=== PATIENT | female | born 1980 | race African-American/Black ===

== ENCOUNTER 2024-03-19 11:58 | Emergency (ER) | payer MEDICAID ==
[~2024-03-19] VITALS: Ht 170.2 cm; Wt 64.0 kg
[2024-03-19 11:59] VITALS: TEMP 98.4; O2SAT 100
[2024-03-19] MEDS: MAGNESIUM/ALUMINUM HYDROXIDE/SIMETHICONE 30ML UDC PO STA (13:22)
[2024-03-19] MEDS: ONDANSETRON 4MG ODT PO STA (13:22)
[2024-03-19] MEDS: DICYCLOMINE 10 MG/5 ML ORAL SYR PO STA (13:39)
[2024-03-19 14:57] VITALS: BP 111/68; PULSE 68; RESP 15
== END 2024-03-19 14:57 | disposition home or self-care (01) ==
LOC: ER 11:58
DX: K52.9 Noninfective gastroenteritis and colitis, unspecified (principal)
CPT/HCPCS: 99284; Q0162

== ENCOUNTER 2024-04-24 00:44 | Emergency (ER) | payer MEDICAID ==
[~2024-04-24] VITALS: Ht 165.1 cm; Wt 55.0 kg
[2024-04-24 00:46] VITALS: BP 134/90; PULSE 92; RESP 18; TEMP 98.2; O2SAT 98
== END 2024-04-24 01:49 | disposition left against medical advice (07) ==
LOC: ER 00:44
DX: R10.30 Lower abdominal pain, unspecified (principal); K59.00 Constipation, unspecified; Z53.21 Procedure and treatment not carried out due to patient leaving prior to being seen by health care provider

== ENCOUNTER 2024-05-01 18:13 | Emergency (ER) | payer MEDICAID ==
[~2024-05-01] VITALS: Ht 175.3 cm; Wt 65.3 kg
[2024-05-01 18:20] VITALS: BP 129/80; PULSE 92; RESP 16; TEMP 98.6; O2SAT 100
[2024-05-01] MEDS ORDERED: ACETAMINOPHEN 325MG TABLET PO STA (18:48)
[2024-05-01 19:47] LABS: BASOPHILS % 0.8 % (0.0-2.0); EOSINOPHILS % 0.1 % (0.0-5.0); HEMATOCRIT. 25.8 % (36.0-48.0); LYMPHOCYTES % 15.7 % (20.0-50.0); MEAN CORPUSCULAR HEMOGLOBIN 20.9 pg (28.0-32.0); MEAN CORPUSCULAR VOLUME 67.6 fL (81.0-99.0); MEAN PLATELET VOLUME 7.2 fl (7.4-10.4); MONOCYTES % 9.1 % (2.0-8.0); NEUTROPHILS % 74.3 % (40.0-76.0); PLATELET 526 x1000/uL (130-400); RED BLOOD CELL COUNT 3.82 mill/uL (4.2-5.4); RED CELL DISTRIBUTION WIDTH 23.2 % (11.6-14.6); WHITE BLOOD COUNT 7.6 x1000/uL (4.5-11.0)
[2024-05-01 19:48] LABS: DIFFERENTIAL COMMENT 1
[2024-05-01 19:49] LABS: ADD RBC MORPHOLOGY YES
[2024-05-01 19:53] LABS: CHLORIDE 99 mEq/L (98-107); POTASSIUM 4.2 mEq/L (3.5-5.1); SODIUM 133 mEq/L (136-145)
[2024-05-01 19:54] LABS: CALCIUM 8.9 mg/dL (8.7-10.4); CARBON DIOXIDE 27 mEq/L (21-32)
[2024-05-01 19:56] LABS: HCG SCREEN NEGATIVE
[2024-05-01 19:59] LABS: CREATININE 0.9 mg/dL (0.6-1.0); GLUCOSE 113 mg/dL (70-105); UREA NITROGEN BLOOD 11 mg/dL (9-23)
[2024-05-01 20:01] LABS: ALANINE AMINOTRANSFERASE < 7 IU/L (10-49); ALBUMIN 3.8 g/dL (3.2-4.8); ASPARTATE AMINOTRANSFERASE 26 IU/L (<34); BILIRUBIN DIRECT 0.1 mg/dL (<=3.0); BILIRUBIN TOTAL 0.4 mg/dL (0.1-1.0); PROTEIN TOTAL 8.3 g/dL (6.0-8.3)
[2024-05-01 20:07] LABS: INR 1.1; PROTHROMBIN TIME 12.6 sec (9.6-11.0)
[2024-05-01 20:12] LABS: ANISOCYTOSIS 3+; HYPOCHROMASIA 2+; MICROCYTOSIS 3+; PLATELET ESTIMATE INCREASED
== END 2024-05-01 21:00 | disposition left against medical advice (07) ==
LOC: ER 18:13
DX: R10.32 Left lower quadrant pain (principal); R11.2 Nausea with vomiting, unspecified; R50.9 Fever, unspecified
CPT/HCPCS: 36415; 74176; 80048; 80076; 84703; 85025; 99284

== ENCOUNTER 2024-07-06 17:04 | Inpatient (IN) | payer MEDICAID ==
[~2024-07-06] VITALS: Ht 162.6 cm; Wt 88.5 kg
[2024-07-06 18:51] LABS: CLARITY URINE CLEAR (CLEAR); COLOR URINE YELLOW (YELLOW); GLUCOSE URINE NEGATIVE (NEGATIVE); KETONES URINE NEGATIVE (NEGATIVE); LEUKOCYTE ESTERASE URINE TRACE (NEGATIVE); NITRITE URINE NEGATIVE (NEGATIVE); OCCULT BLOOD URINE NEGATIVE (NEGATIVE); PH URINE 5.5 (4.5-8.0); PROTEIN URINE 1+ (NEGATIVE); SPECIFIC GRAVITY URINE 1.011 (1.005-1.030); UROBILINOGEN URINE 0.2 E.U./dL (0.2-1.0)
[2024-07-06 19:02] LABS: BACTERIA URINE TRACE; RBC URINE 0-2 /hpf (0-2); SQUAMOUS EPITHELIAL CELL URINE 1+ /lpf (RARE/1+); TRICHOMONAS URINE 2+
[2024-07-06 19:07] LABS: *AMPHETAMINES SCREEN URINE PRESUMPTIVE POSITIVE (NEGATIVE); *BARBITURATES SCREEN URINE NEGATIVE (NEGATIVE); *BENZODIAZEPINES SCREEN URINE NEGATIVE (NEGATIVE); *COCAINE SCREEN URINE NEGATIVE (NEGATIVE); CANNABINOID URINE SCREEN NEGATIVE (NEGATIVE); ECSTASY MDMA SCREEN URINE NEGATIVE (NEGATIVE); METHADONE URINE SCREEN NEGATIVE (NEGATIVE); OPIATES URINE SCREEN PRESUMPTIVE POSITIVE (NEGATIVE); PHENCYCLIDINE URINE SCREEN PRESUMTIVE POSITIVE (NEGATIVE)
[2024-07-06 19:18] LABS: ADD RBC MORPHOLOGY YES; BASOPHILS % 0.5 % (0.0-2.0); DIFFERENTIAL COMMENT 1; EOSINOPHILS % 0.3 % (0.0-5.0); HEMATOCRIT. 29.8 % (36.0-48.0); HEMOGLOBIN. 9.6 g/dL (12.0-16.0); LYMPHOCYTES % 9.3 % (20.0-50.0); MEAN CORPUSCULAR HEMOGLOBIN 23.9 pg (28.0-32.0); MEAN CORPUSCULAR HGB CONC 32.2 g/dL (31.0-37.0); MEAN CORPUSCULAR VOLUME 74.3 fL (81.0-99.0); MEAN PLATELET VOLUME 6.9 fl (7.4-10.4); MONOCYTES % 5.9 % (2.0-8.0); PLATELET 550 x1000/uL (130-400); RED BLOOD CELL COUNT 4.01 mill/uL (4.2-5.4); RED CELL DISTRIBUTION WIDTH 25.6 % (11.6-14.6); WHITE BLOOD COUNT 9.1 x1000/uL (4.5-11.0)
[2024-07-06 19:24] LABS: CARBON DIOXIDE 21 mEq/L (21-32); CHLORIDE 110 mEq/L (98-107); POTASSIUM 5.7 mEq/L (3.5-5.1); SODIUM 140 mEq/L (136-145)
[2024-07-06 19:25] LABS: CALCIUM 9.1 mg/dL (8.7-10.4)
[2024-07-06 19:26] LABS: HCG SCREEN NEGATIVE
[2024-07-06 19:29] LABS: INR 1.2
[2024-07-06 19:30] LABS: GLUCOSE 79 mg/dL (70-105); UREA NITROGEN BLOOD 40 mg/dL (9-23)
[2024-07-06 19:31] LABS: CREATININE 3.4 mg/dL (0.6-1.0); ETHANOL BLOOD < 10 mg/dL (<10); TROPONIN I HIGH SENSITIVITY 4 ng/L (3.0-34)
[2024-07-06 19:32] LABS: ALANINE AMINOTRANSFERASE < 7 IU/L (10-49); ALBUMIN 3.4 g/dL (3.2-4.8); ASPARTATE AMINOTRANSFERASE 15 IU/L (<34); BILIRUBIN TOTAL 0.3 mg/dL (0.1-1.0); PROTEIN TOTAL 8.1 g/dL (6.0-8.3)
[2024-07-06 19:37] LABS: HYPOCHROMASIA 1+; MICROCYTOSIS 2+; PLATELET ESTIMATE SLIGHTLY INCREASED
[2024-07-06 19:38] LABS: BILIRUBIN DIRECT < 0.1 mg/dL (<=3.0)
[2024-07-06] MEDS ORDERED: DEXTROSE 50% WATER 50ML SYRINGE IV ONE (19:45)
[2024-07-06] MEDS ORDERED: SODIUM BICARBONATE 8.4% 50MEQ/50ML SYR IV ONE (19:45)
[2024-07-06] MEDS ORDERED: CALCIUM GLUCONATE 1,000 MG in DEXT 5% WATER 100 ML IV ONE (19:45)
[2024-07-06] MEDS ORDERED: INSULIN REGULAR (HUMULIN R) 1000UNITS/10ML VIAL IV ONE (19:45)
[2024-07-06] MEDS ORDERED: ALBUTEROL (0.083%) 2.5MG/3ML NEB HHN SCH (20:00)
[2024-07-06] MEDS: CEFTRIAXONE 1GM/50ML 50 ML IV ONE (21:30)
[2024-07-06] MEDS: CALCIUM GLUCONATE 1GM PREMIX 50 ML IV NR (21:58)
[2024-07-06] MEDS: MORPHINE SULFATE 4 MG/ML INJ (FOR IV/IM USE) IV ONE (22:19)
[2024-07-06] MEDS: ONDANSETRON HCL 4MG/2ML INJ IV ONE (22:19)
[2024-07-06] MEDS: DEXTROSE 50% WATER 50ML SYRINGE IV NR (22:24)
[2024-07-06] MEDS: INSULIN REGULAR (HUMULIN R) 1000UNITS/10ML VIAL IV NR (22:24)
[2024-07-06] MEDS: SODIUM BICARBONATE 8.4% 50MEQ/50ML SYR IV NR (22:24)
[2024-07-07 02:08] VITALS: BP 146/92; PULSE 103; RESP 20; TEMP 36.6404
[2024-07-07 04:00] VITALS: BP 138/78; PULSE 78; RESP 18; TEMP 37.00296; O2SAT 98
[2024-07-07] MEDS ORDERED: NALOXONE HCL 0.4MG/ML VIAL IV PRN (06:00)
[2024-07-07] MEDS: MORPHINE SULFATE 2 MG/ML INJ (NOT FOR IM USE) IV PRN (06:16)
[2024-07-07 07:16] LABS: HEPATITIS B SURFACE ANTIGEN NEGATIVE (Negative)
[2024-07-07 07:36] LABS: HEPATITIS C AB NON REACTIVE (Neg) (Negative)
[2024-07-07 08:00] VITALS: BP 125/87; PULSE 87; RESP 18; TEMP 36.50292; O2SAT 100
[2024-07-07] MEDS: SODIUM CHLORIDE 0.9% 100 ML IV ONE (09:00)
[2024-07-07 09:57] LABS: POTASSIUM 5.8 mEq/L (3.5-5.1)
[2024-07-07 09:58] LABS: CALCIUM 8.7 mg/dL (8.7-10.4)
[2024-07-07 10:13] LABS: BASOPHILS % 0.8 % (0.0-2.0); EOSINOPHILS % 0.3 % (0.0-5.0); HEMOGLOBIN. 9.2 g/dL (12.0-16.0); LYMPHOCYTES % 7.3 % (20.0-50.0); MEAN CORPUSCULAR HEMOGLOBIN 23.1 pg (28.0-32.0); MEAN CORPUSCULAR HGB CONC 30.8 g/dL (31.0-37.0); MEAN CORPUSCULAR VOLUME 74.9 fL (81.0-99.0); MEAN PLATELET VOLUME 7.1 fl (7.4-10.4); MONOCYTES % 7.1 % (2.0-8.0); NEUTROPHILS % 84.5 % (40.0-76.0); PLATELET 510 x1000/uL (130-400); RED CELL DISTRIBUTION WIDTH 25.4 % (11.6-14.6); WHITE BLOOD COUNT 8.7 x1000/uL (4.5-11.0)
[2024-07-07 10:17] LABS: DIFFERENTIAL COMMENT 1
[2024-07-07 12:00] VITALS: BP 126/90; PULSE 95; RESP 18; TEMP 36.50292; O2SAT 98
[2024-07-07] MEDS: DEXTROSE 50% WATER 50ML SYRINGE IV NR (13:18)
[2024-07-07] MEDS: SODIUM BICARBONATE 8.4% 50MEQ/50ML SYR IV NR (13:18)
[2024-07-07] MEDS: INSULIN REGULAR (HUMULIN R) 1000UNITS/10ML VIAL IV NR (13:20)
[2024-07-07] MEDS: SODIUM ZIRCONIUM CYCLOSILICATE 10GM/PACKET PO NR (13:20)
[2024-07-07 16:00] VITALS: BP 120/84; PULSE 96; RESP 18; TEMP 36.55848; O2SAT 100
[2024-07-07] MEDS ORDERED: ACETAMINOPHEN 325MG TABLET PO PRN (17:45)
[2024-07-07] MEDS ORDERED: DOCUSATE SODIUM 100MG CAPSULE PO PRN (17:45)
[2024-07-07 20:00] VITALS: BP 114/72; PULSE 107; RESP 18; TEMP 36.44736; O2SAT 98
[2024-07-07] MEDS ORDERED: BICT1TAB3 PO (22:38)
[2024-07-08] VITALS: BP 122/74; PULSE 97; RESP 19; TEMP 36.28068; O2SAT 98
[2024-07-08 04:00] VITALS: BP 138/87; PULSE 97; RESP 18; TEMP 36.33624; O2SAT 99
[2024-07-08 08:00] VITALS: BP 149/100; PULSE 91; RESP 18; TEMP 36.6696; O2SAT 93
[2024-07-08 12:00] VITALS: BP 136/93; PULSE 100; RESP 20; TEMP 37.00296; O2SAT 99
[2024-07-08 16:00] VITALS: BP 144/82; PULSE 90; RESP 18; TEMP 36.78072; O2SAT 97
[2024-07-08 18:57] LABS: BASOPHILS % 0.2 % (0.0-2.0); EOSINOPHILS % 0.3 % (0.0-5.0); HEMATOCRIT. 27.7 % (36.0-48.0); HEMOGLOBIN. 8.7 g/dL (12.0-16.0); LYMPHOCYTES % 10.4 % (20.0-50.0); MEAN CORPUSCULAR HEMOGLOBIN 23.6 pg (28.0-32.0); MEAN CORPUSCULAR HGB CONC 31.5 g/dL (31.0-37.0); MEAN CORPUSCULAR VOLUME 74.9 fL (81.0-99.0); MEAN PLATELET VOLUME 7.2 fl (7.4-10.4); MONOCYTES % 6.2 % (2.0-8.0); NEUTROPHILS % 82.9 % (40.0-76.0); PLATELET 492 x1000/uL (130-400); RED BLOOD CELL COUNT 3.69 mill/uL (4.2-5.4); RED CELL DISTRIBUTION WIDTH 25.1 % (11.6-14.6); WHITE BLOOD COUNT 8.6 x1000/uL (4.5-11.0)
[2024-07-08 18:58] LABS: DIFFERENTIAL COMMENT 1
[2024-07-08 19:02] LABS: CHLORIDE 107 mEq/L (98-107); POTASSIUM 5.9 mEq/L (3.5-5.1); SODIUM 137 mEq/L (136-145)
[2024-07-08 19:03] LABS: CARBON DIOXIDE 20 mEq/L (21-32)
[2024-07-08 19:04] LABS: CALCIUM 8.8 mg/dL (8.7-10.4)
[2024-07-08 19:08] LABS: CREATININE 3.4 mg/dL (0.6-1.0); GLUCOSE 82 mg/dL (70-105); IRON 17 ug/dL (50-170)
[2024-07-08 19:09] LABS: UREA NITROGEN BLOOD 42 mg/dL (9-23)
[2024-07-08 19:11] LABS: TOTAL IRON BINDING CAPACITY 185 ug/dl (250-425)
[2024-07-08 20:00] VITALS: BP 148/99; PULSE 99; RESP 18; TEMP 36.50292; O2SAT 99
[2024-07-09] VITALS: BP 139/88; PULSE 96; RESP 18; TEMP 36.61404; O2SAT 96
[2024-07-09 04:00] VITALS: BP 131/88; PULSE 94; RESP 18; TEMP 36.3918; O2SAT 99
[2024-07-09 08:00] VITALS: BP 134/71; PULSE 101; RESP 18; TEMP 37.00296; O2SAT 98
[2024-07-09 08:13] LABS: CARCINOEMBRYONIC AG - SEND OUT < 0.6 ng/mL (0.0-4.7)
[2024-07-09] MEDS ORDERED: BICTEGRAVIR 50MG/EMTRICITABINE 200MG/TENOFOVIR ALA 25MG PO SCH ×2 (09:00→09:28)
[2024-07-09 09:07] LABS: % CD 3 POS. LYMPHOCYTES 86.7 % (57.5-86.2); % CD 4 POS. LYMPHOCYTES 41.3 % (30.8-58.5); % CD 8 POS. LYMPH 44.7 % (12.0-35.5); ABSOLUTE CD 3 607 /uL (622-2402); ABSOLUTE CD 4 HELPER 289 /uL (359-1519); ABSOLUTE CD 8 SUPPRESSOR 313 /uL (109-897); ABSOLUTE LYMPHOCYTES 0.7 x10E3/uL (0.7-3.1); ABSOLUTE MONOCYTES 0.4 x10E3/uL (0.1-0.9); ABSOLUTE NEUTROPHILS 7.6 x10E3/uL (1.4-7.0); BASOPHILS 0 % (Not Estab.); CD4/CD8 RATIO 0.92 (0.92-3.72); EOSINOPHILS 0 % (Not Estab.); HEMATOCRIT 31.5 % (34.0-46.6); HEMOGLOBIN 9.2 g/dL (11.1-15.9); IMMATURE GRANULOCYTES 1 % (Not Estab.); IMMATURE GRANULOCYTES ABSOLUTE 0.1 x10E3/uL (0.0-0.1); LYMPHOCYTES 8 % (Not Estab.); MEAN CORPUSCULAR HEMOGLOBIN 22.9 pg (26.6-33.0); MEAN CORPUSCULAR HGB CONC. 29.2 g/dL (31.5-35.7); MEAN CORPUSCULAR VOLUME 78 fL (79-97); MONOCYTES 5 % (Not Estab.); NEUTROPHILS 86 % (Not Estab.); PLATELETS 537 x10E3/uL (150-450); RBC 4.02 x10E6/uL (3.77-5.28); RED CELL DISTRIBUTION WIDTH 21.3 % (11.7-15.4); WBC 8.8 x10E3/uL (3.4-10.8)
[2024-07-09 10:34] LABS: BASOPHILS % 0.4 % (0.0-2.0); EOSINOPHILS % 0.1 % (0.0-5.0); HEMATOCRIT. 28.1 % (36.0-48.0); HEMOGLOBIN. 8.9 g/dL (12.0-16.0); MEAN CORPUSCULAR HEMOGLOBIN 23.7 pg (28.0-32.0); MEAN CORPUSCULAR HGB CONC 31.9 g/dL (31.0-37.0); MEAN CORPUSCULAR VOLUME 74.4 fL (81.0-99.0); MONOCYTES % 6.9 % (2.0-8.0); NEUTROPHILS % 82.6 % (40.0-76.0); PLATELET 452 x1000/uL (130-400); RED BLOOD CELL COUNT 3.77 mill/uL (4.2-5.4); RED CELL DISTRIBUTION WIDTH 25.3 % (11.6-14.6); WHITE BLOOD COUNT 8.7 x1000/uL (4.5-11.0)
[2024-07-09 10:43] LABS: DIFFERENTIAL COMMENT 1
[2024-07-09 10:47] LABS: CALCIUM 8.7 mg/dL (8.7-10.4); POTASSIUM 5.9 mEq/L (3.5-5.1)
[2024-07-09 10:52] LABS: CREATININE 3.4 mg/dL (0.6-1.0)
[2024-07-09] MEDS ORDERED: ALBUTEROL (0.5%) 2.5MG/0.5ML NEB HHN NR (11:00)
[2024-07-09] MEDS: SODIUM ZIRCONIUM CYCLOSILICATE 10GM/PACKET PO NR (11:47)
[2024-07-09] MEDS: BICTEGRAVIR 50MG/EMTRICITABINE 200MG/TENOFOVIR ALA 25MG PO SCH (11:47)
[2024-07-09 12:00] VITALS: BP 150/98; PULSE 87; RESP 18; TEMP 36.50292; O2SAT 98
[2024-07-09 16:39] VITALS: BP 137/90; PULSE 90; RESP 18; TEMP 36.33624; O2SAT 98
[2024-07-09 22:29] VITALS: BP 136/92; PULSE 100; RESP 18; TEMP 36.55848; O2SAT 97
[2024-07-10] VITALS (7 sets, daily range): BP systolic 126–150; BP diastolic 86–102; PULSE 79–105; RESP 16–20; TEMP 36.44736–36.89184; O2SAT 97–100
[2024-07-10] MEDS: SODIUM BICARBONATE 8.4% 50MEQ/50ML SYR IV NR ×2 (04:52→15:52)
[2024-07-10] MEDS: INSULIN REGULAR (HUMULIN R) 1000UNITS/10ML VIAL IV NR ×2 (04:52→15:53)
[2024-07-10] MEDS: DEXTROSE 50% WATER 50ML SYRINGE IV NR ×2 (04:52→15:52)
[2024-07-10] MEDS: SODIUM ZIRCONIUM CYCLOSILICATE 10GM/PACKET PO NR ×2 (05:00→15:53)
[2024-07-10] MEDS: ALBUTEROL (0.5%) 2.5MG/0.5ML NEB HHN NR (16:39)
[2024-07-10] MEDS: ONDANSETRON HCL 4MG/2ML INJ IV PRN (21:23)
[2024-07-11] VITALS: BP 140/100; PULSE 98; RESP 18; TEMP 37.11408; O2SAT 99
[2024-07-11 04:00] VITALS: BP 130/89; PULSE 96; RESP 18; TEMP 36.72516; O2SAT 95
[2024-07-11 04:11] LABS: *HIV-1 RNA BY PCR 2830 copies/mL (.); *HIV1 RNA LOG10 3.452 (.)
[2024-07-11 08:00] VITALS: BP 139/89; PULSE 88; RESP 20; TEMP 36.61404; O2SAT 99
[2024-07-11 12:15] VITALS: BP 130/93; PULSE 87; RESP 22; TEMP 36.55848; O2SAT 100
[2024-07-11 16:50] VITALS: BP 148/102; PULSE 91; RESP 22; TEMP 36.50292; O2SAT 96
[2024-07-11 20:00] VITALS: BP 137/93; PULSE 91; RESP 16; TEMP 36.89184; O2SAT 98
[2024-07-11] MEDS: OLANZAPINE 5MG TABLET PO SCH (21:30)
[2024-07-12] VITALS: BP 122/80; PULSE 91; RESP 19; TEMP 36.78072; O2SAT 98
[2024-07-12 04:00] VITALS: BP 133/93; PULSE 89; RESP 19; TEMP 36.72516; O2SAT 98
[2024-07-12 08:00] VITALS: BP 134/81; PULSE 91; RESP 18; TEMP 36.50292; O2SAT 97
[2024-07-12 12:00] VITALS: BP 134/92; PULSE 93; RESP 18; TEMP 36.72516; O2SAT 99
[2024-07-12 16:00] VITALS: BP 129/69; PULSE 89; RESP 19; TEMP 36.55848; O2SAT 98
[2024-07-12 20:00] VITALS: BP 152/94; PULSE 95; RESP 18; TEMP 37.11408; O2SAT 99
[2024-07-12] MEDS: ACETAMINOPHEN 325MG TABLET PO PRN (21:11)
[2024-07-13] VITALS: BP 142/80; PULSE 97; RESP 18; TEMP 36.55848; O2SAT 99
[2024-07-13 04:00] VITALS: BP 140/90; PULSE 89; RESP 18; TEMP 36.55848; O2SAT 99
[2024-07-13 08:00] VITALS: BP 141/99; PULSE 94; RESP 18; TEMP 36.78072; O2SAT 97
[2024-07-13 12:00] VITALS: BP 142/96; PULSE 89; RESP 18; TEMP 36.6696; O2SAT 96
[2024-07-13 16:00] VITALS: BP 139/98; PULSE 93; RESP 18; TEMP 36.61404; O2SAT 98
[2024-07-13] MEDS: CLONIDINE 0.1MG TABLET PO PRN (17:01)
[2024-07-13 22:44] LABS: BASOPHILS % 0.5 % (0.0-2.0); EOSINOPHILS % 0.2 % (0.0-5.0); HEMATOCRIT. 26.5 % (36.0-48.0); HEMOGLOBIN. 8.3 g/dL (12.0-16.0); LYMPHOCYTES % 10.7 % (20.0-50.0); MEAN CORPUSCULAR HEMOGLOBIN 23.4 pg (28.0-32.0); MEAN CORPUSCULAR HGB CONC 31.5 g/dL (31.0-37.0); MEAN CORPUSCULAR VOLUME 74.2 fL (81.0-99.0); MEAN PLATELET VOLUME 7.1 fl (7.4-10.4); MONOCYTES % 6.5 % (2.0-8.0); NEUTROPHILS % 82.1 % (40.0-76.0); PLATELET 429 x1000/uL (130-400); RED BLOOD CELL COUNT 3.57 mill/uL (4.2-5.4); RED CELL DISTRIBUTION WIDTH 24.9 % (11.6-14.6); WHITE BLOOD COUNT 7.3 x1000/uL (4.5-11.0)
[2024-07-13 22:45] LABS: DIFFERENTIAL COMMENT 1
[2024-07-13 22:52] LABS: CALCIUM 9.2 mg/dL (8.7-10.4)
[2024-07-13 22:57] LABS: CREATININE 4.4 mg/dL (0.6-1.0)
[2024-07-13 23:04] LABS: POTASSIUM 6.6 mEq/L (3.5-5.1)
[2024-07-14] VITALS: BP 120/82; PULSE 90; RESP 18; TEMP 36.61404; O2SAT 99
[2024-07-14] MEDS: SODIUM POLYSTYRENE SULFONATE 15 G/60 ML BOT PO NR (02:00)
[2024-07-14] MEDS: CALCIUM CHLORIDE 1GM/10ML SYR IV NR ×2 (02:00→07:38)
[2024-07-14] MEDS: INSULIN REGULAR (HUMULIN R) 1000UNITS/10ML VIAL IV NR ×2 (02:00→07:44)
[2024-07-14] MEDS: DEXTROSE 50% WATER 50ML SYRINGE IV NR ×2 (02:00→07:37)
[2024-07-14] MEDS: SODIUM ZIRCONIUM CYCLOSILICATE 10GM/PACKET PO NR (07:30)
[2024-07-14 07:47] LABS: CALCIUM 9.8 mg/dL (8.7-10.4)
[2024-07-14 07:51] LABS: CREATININE 4.3 mg/dL (0.6-1.0)
[2024-07-14 08:01] LABS: POTASSIUM 6.7 mEq/L (3.5-5.1)
[2024-07-14 08:15] LABS: EOSINOPHILS % 0.3 % (0.0-5.0); HEMATOCRIT. 28.7 % (36.0-48.0); HEMOGLOBIN. 9.1 g/dL (12.0-16.0); LYMPHOCYTES % 14.2 % (20.0-50.0); MEAN CORPUSCULAR HEMOGLOBIN 23.7 pg (28.0-32.0); MEAN CORPUSCULAR HGB CONC 31.5 g/dL (31.0-37.0); MEAN CORPUSCULAR VOLUME 75.1 fL (81.0-99.0); MEAN PLATELET VOLUME 7.4 fl (7.4-10.4); MONOCYTES % 7.9 % (2.0-8.0); NEUTROPHILS % 76.6 % (40.0-76.0); PLATELET 442 x1000/uL (130-400); RED BLOOD CELL COUNT 3.83 mill/uL (4.2-5.4); RED CELL DISTRIBUTION WIDTH 24.5 % (11.6-14.6); WHITE BLOOD COUNT 7.1 x1000/uL (4.5-11.0)
[2024-07-14 08:22] LABS: DIFFERENTIAL COMMENT 1
[2024-07-15] VITALS (7 sets, daily range): BP systolic 128–131; BP diastolic 75–90; PULSE 74–111; RESP 18–20; TEMP 36.50292–37; O2SAT 96–99
[2024-07-15] MEDS: IPRATROPIUM/ALBUTEROL 0.5-3(2.5)MG/3ML NEB HHN PRN (14:53)
[2024-07-16] VITALS: BP 124/86; PULSE 114; RESP 18; TEMP 36.16956; O2SAT 90
[2024-07-16 04:00] VITALS: BP 124/85; PULSE 100; RESP 19; TEMP 36.28068; O2SAT 96
[2024-07-16 08:00] VITALS: BP 133/93; PULSE 103; RESP 20; TEMP 36.44736; O2SAT 98
[2024-07-16 12:00] VITALS: BP 118/81; PULSE 102; RESP 18; TEMP 36.3918; O2SAT 98
[2024-07-16] MEDS: SODIUM BICARBONATE 8.4% 50MEQ/50ML SYR IV NR (13:45)
[2024-07-16] MEDS: DEXTROSE 50% WATER 50ML SYRINGE IV NR (13:45)
[2024-07-16] MEDS ORDERED: CALCIUM CHLORIDE 1GM/10ML SYR IV ONE (13:45)
[2024-07-16] MEDS: SODIUM POLYSTYRENE SULFONATE 15 G/60 ML BOT PO NR (14:00)
[2024-07-16] MEDS: INSULIN REGULAR (HUMULIN R) 1000UNITS/10ML VIAL IV NR (14:00)
[2024-07-16] MEDS: FUROSEMIDE 100MG/10ML VIAL IV NR (14:00)
[2024-07-16] MEDS: CALCIUM GLUCONATE 1GM PREMIX 50ML IV NR (15:30)
[2024-07-16 16:00] VITALS: BP 134/71; PULSE 99; RESP 20; TEMP 36.44736; O2SAT 97
[2024-07-16 20:00] VITALS: BP 130/80; PULSE 101; RESP 18; TEMP 36.28068; O2SAT 93
[2024-07-16] MEDS: OLANZAPINE 5MG TABLET PO SCH (21:06)
[2024-07-16 21:59] LABS: BASOPHILS % 0.1 % (0.0-2.0); EOSINOPHILS % 0.2 % (0.0-5.0); HEMATOCRIT. 32.8 % (36.0-48.0); HEMOGLOBIN. 10.2 g/dL (12.0-16.0); MEAN CORPUSCULAR HEMOGLOBIN 23.5 pg (28.0-32.0); MEAN CORPUSCULAR VOLUME 75.8 fL (81.0-99.0); MEAN PLATELET VOLUME 7.4 fl (7.4-10.4); MONOCYTES % 6.4 % (2.0-8.0); NEUTROPHILS % 83.3 % (40.0-76.0); PLATELET 411 x1000/uL (130-400); RED BLOOD CELL COUNT 4.33 mill/uL (4.2-5.4); RED CELL DISTRIBUTION WIDTH 25.3 % (11.6-14.6); WHITE BLOOD COUNT 8.9 x1000/uL (4.5-11.0)
[2024-07-16 22:00] LABS: DIFFERENTIAL COMMENT 1
[2024-07-16 22:02] LABS: CHLORIDE 105 mEq/L (98-107); SODIUM 136 mEq/L (136-145)
[2024-07-16 22:03] LABS: CALCIUM 9.4 mg/dL (8.7-10.4); CARBON DIOXIDE 19 mEq/L (21-32)
[2024-07-16 22:08] LABS: CREATININE 4.4 mg/dL (0.6-1.0); GLUCOSE 76 mg/dL (70-105); UREA NITROGEN BLOOD 52 mg/dL (9-23)
[2024-07-16 22:10] LABS: PHOSPHORUS 5.8 mg/dL (2.5-4.9)
[2024-07-16 22:31] LABS: POTASSIUM 7.3 mEq/L (3.5-5.1)
[2024-07-17] VITALS: BP 145/95; PULSE 99; RESP 18; TEMP 36.22512; O2SAT 95
[2024-07-17 08:00] VITALS: BP 131/89; PULSE 100; RESP 18; TEMP 36.3918; O2SAT 100
[2024-07-17 09:08] VITALS: PULSE 86; RESP 18
[2024-07-17] MEDS: DEXTROSE 50% WATER 50ML SYRINGE IV NR ×2 (14:54→23:50)
[2024-07-17] MEDS: SODIUM ZIRCONIUM CYCLOSILICATE 10GM/PACKET PO NR (14:54)
[2024-07-17] MEDS: SODIUM BICARBONATE 8.4% 50MEQ/50ML SYR IV NR ×2 (14:54→23:46)
[2024-07-17] MEDS: INSULIN REGULAR (HUMULIN R) 1000UNITS/10ML VIAL IV NR ×2 (15:23→22:30)
[2024-07-17 20:00] VITALS: BP 129/95; PULSE 109; RESP 19; TEMP 36.33624; O2SAT 97
[2024-07-17] MEDS ORDERED: ALBUTEROL (0.5%) 2.5MG/0.5ML NEB HHN NR (22:30)
[2024-07-17] MEDS: CALCIUM GLUCONATE 1GM PREMIX 50 ML IV NR (23:49)
[2024-07-18] VITALS (12 sets, daily range): BP systolic 110–135; BP diastolic 74–90; PULSE 68–108; RESP 17–19; TEMP 35.94732–37.05852; O2SAT 95–100
[2024-07-18 07:59] LABS: CREATININE 4.7 mg/dL (0.6-1.0)
[2024-07-18] MEDS ORDERED: DEXTROSE 50% WATER 50ML SYRINGE IV NR (09:30)
[2024-07-18] MEDS ORDERED: SODIUM BICARBONATE 8.4% 50MEQ/50ML SYR IV NR (09:30)
[2024-07-18] MEDS ORDERED: CALCIUM GLUCONATE 1GM PREMIX 50 ML IV NR (10:00)
[2024-07-18] MEDS ORDERED: INSULIN REGULAR (HUMULIN R) 1000UNITS/10ML VIAL SUBCUT NR (10:00)
[2024-07-18 12:15] LABS: HEPATITIS B SURFACE ANTIGEN NEGATIVE (Negative)
[2024-07-18 12:35] LABS: HEPATITIS A AB IGM NEGATIVE (Negative)
[2024-07-18 12:36] LABS: HEPATITIS B CORE AB IGM NEGATIVE (Negative); HEPATITIS C AB NON REACTIVE (Neg) (Negative)
[2024-07-18] MEDS: LIDOCAINE HCL 1% 10 MG/ML 10ML VIAL ONE (13:12)
[2024-07-19] VITALS (10 sets, daily range): BP systolic 105–132; BP diastolic 70–87; PULSE 66–104; RESP 18–19; TEMP 36.3918–36.6696; O2SAT 98–100
[2024-07-19 07:11] LABS: POTASSIUM 4.4 mEq/L (3.5-5.1)
[2024-07-19 07:12] LABS: CALCIUM 8.8 mg/dL (8.7-10.4)
[2024-07-19 07:22] LABS: BASOPHILS % 0.1 % (0.0-2.0); EOSINOPHILS % 0.1 % (0.0-5.0); HEMATOCRIT. 25.6 % (36.0-48.0); LYMPHOCYTES % 10.6 % (20.0-50.0); MEAN CORPUSCULAR HEMOGLOBIN 23.5 pg (28.0-32.0); MEAN CORPUSCULAR HGB CONC 31.1 g/dL (31.0-37.0); MEAN CORPUSCULAR VOLUME 75.5 fL (81.0-99.0); MEAN PLATELET VOLUME 7.4 fl (7.4-10.4); MONOCYTES % 6.9 % (2.0-8.0); NEUTROPHILS % 82.3 % (40.0-76.0); PLATELET 367 x1000/uL (130-400); RED BLOOD CELL COUNT 3.39 mill/uL (4.2-5.4); WHITE BLOOD COUNT 9.1 x1000/uL (4.5-11.0)
[2024-07-19 07:50] LABS: DIFFERENTIAL COMMENT 1
[2024-07-19 07:52] LABS: ADD RBC MORPHOLOGY NO
[2024-07-19 08:00] LABS: CREATININE 2.8 mg/dL (0.6-1.0)
[2024-07-20 04:00] VITALS: BP 115/76; PULSE 85; RESP 18; TEMP 36.44736; O2SAT 97
[2024-07-20 06:45] LABS: POTASSIUM 5.3 mEq/L (3.5-5.1)
[2024-07-20 06:46] LABS: CALCIUM 8.6 mg/dL (8.7-10.4)
[2024-07-20 06:51] LABS: CREATININE 3.3 mg/dL (0.6-1.0)
[2024-07-20 07:16] LABS: BASOPHILS % 0.1 % (0.0-2.0); EOSINOPHILS % 0.5 % (0.0-5.0); HEMATOCRIT. 24.2 % (36.0-48.0); HEMOGLOBIN. 7.8 g/dL (12.0-16.0); LYMPHOCYTES % 11.6 % (20.0-50.0); MEAN CORPUSCULAR HEMOGLOBIN 23.9 pg (28.0-32.0); MEAN CORPUSCULAR HGB CONC 32.3 g/dL (31.0-37.0); MEAN CORPUSCULAR VOLUME 73.9 fL (81.0-99.0); MEAN PLATELET VOLUME 7.6 fl (7.4-10.4); NEUTROPHILS % 79.8 % (40.0-76.0); PLATELET 336 x1000/uL (130-400); RED BLOOD CELL COUNT 3.27 mill/uL (4.2-5.4); WHITE BLOOD COUNT 8.4 x1000/uL (4.5-11.0)
[2024-07-20 08:00] VITALS: BP 115/54; PULSE 107; RESP 18; TEMP 36.61404; O2SAT 97
[2024-07-20 08:28] LABS: DIFFERENTIAL COMMENT 1
[2024-07-20 08:29] LABS: ADD RBC MORPHOLOGY NO
[2024-07-21] VITALS (8 sets, daily range): BP systolic 101–161; BP diastolic 68–92; PULSE 68–98; RESP 18–21; TEMP 35.89176–36.6696; O2SAT 95–100
[2024-07-22] VITALS: BP 158/85; PULSE 82; RESP 20; TEMP 36.33624; O2SAT 99
[2024-07-22 04:00] VITALS: BP 167/94; PULSE 80; RESP 18; TEMP 36.61404; O2SAT 18
[2024-07-22 08:00] VITALS: BP 141/98; PULSE 87; RESP 18; TEMP 36.114; O2SAT 96
[2024-07-22 20:00] VITALS: BP 134/80; PULSE 86; RESP 19; TEMP 36.89184; O2SAT 100
[2024-07-23] VITALS (7 sets, daily range): BP systolic 135–156; BP diastolic 66–102; PULSE 83–89; RESP 18–19; TEMP 36.3918–36.72516; O2SAT 96–100
[2024-07-23 11:01] LABS: POTASSIUM 5.6 mEq/L (3.5-5.1)
[2024-07-23 11:02] LABS: CALCIUM 8.5 mg/dL (8.7-10.4)
[2024-07-23 11:07] LABS: CREATININE 3.9 mg/dL (0.6-1.0)
[2024-07-23 11:28] LABS: BASOPHILS % 0.2 % (0.0-2.0); EOSINOPHILS % 0.2 % (0.0-5.0); HEMATOCRIT. 25.3 % (36.0-48.0); HEMOGLOBIN. 7.9 g/dL (12.0-16.0); LYMPHOCYTES % 10.1 % (20.0-50.0); MEAN CORPUSCULAR HEMOGLOBIN 23.8 pg (28.0-32.0); MEAN CORPUSCULAR HGB CONC 31.4 g/dL (31.0-37.0); MEAN CORPUSCULAR VOLUME 75.8 fL (81.0-99.0); MEAN PLATELET VOLUME 7.3 fl (7.4-10.4); MONOCYTES % 6.4 % (2.0-8.0); NEUTROPHILS % 83.1 % (40.0-76.0); PLATELET 315 x1000/uL (130-400); RED BLOOD CELL COUNT 3.34 mill/uL (4.2-5.4); RED CELL DISTRIBUTION WIDTH 25.2 % (11.6-14.6); WHITE BLOOD COUNT 7.7 x1000/uL (4.5-11.0)
[2024-07-23 11:30] LABS: DIFFERENTIAL COMMENT 1
[2024-07-24] VITALS (7 sets, daily range): BP systolic 103–147; BP diastolic 66–102; PULSE 66–99; RESP 17–22; TEMP 36.3918–37.00296; O2SAT 99–100
[2024-07-24 11:24] LABS: POTASSIUM 4.8 mEq/L (3.5-5.1)
[2024-07-24 11:26] LABS: CALCIUM 8.5 mg/dL (8.7-10.4)
[2024-07-24 11:30] LABS: CREATININE 3.6 mg/dL (0.6-1.0)
[2024-07-25 04:00] VITALS: BP 155/109; PULSE 95; RESP 18; TEMP 36.44736; O2SAT 98
[2024-07-25 08:00] VITALS: BP 149/114; PULSE 101; RESP 20; O2SAT 98
[2024-07-25 16:00] VITALS: BP 153/107; PULSE 92; RESP 20; O2SAT 100
[2024-07-25] MEDS ORDERED: HYDROCODONE/ACETAMINOPHEN 5/325MG TABLET PO PRN (16:45)
[2024-07-25] MEDS ORDERED: NALOXONE HCL 0.4MG/ML VIAL IV PRN (17:00)
[2024-07-25] MEDS: HYDROCODONE/ACETAMINOPHEN 5/325MG TABLET PO PRN (17:02)
[2024-07-26] VITALS: BP 120/84; PULSE 91; RESP 18; TEMP 36.50292; O2SAT 99
[2024-07-26 04:00] VITALS: BP 121/75; PULSE 88; RESP 17; TEMP 36.44736; O2SAT 99
[2024-07-26 07:54] VITALS: BP 137/99; PULSE 89; RESP 18; TEMP 36.55848; O2SAT 98
[2024-07-26 14:44] VITALS: BP 164/95; RESP 17; TEMP 36.22512; O2SAT 99
[2024-07-26] MEDS: ALBUTEROL (0.083%) 2.5MG/3ML NEB HHN ONE (14:52)
[2024-07-26 16:00] VITALS: BP 137/92; PULSE 83; RESP 17; TEMP 36.33624; O2SAT 100
[2024-07-26 20:00] VITALS: BP 136/89; PULSE 89; RESP 17; TEMP 35.72508; O2SAT 99
[2024-07-27] VITALS (34 sets, daily range): BP systolic 42–138; BP diastolic 12–91; PULSE 79–152; RESP 16–31; TEMP 32.7804–36.6696; O2SAT 96–100
[2024-07-27 07:13] LABS: BASOPHILS % 0.3 % (0.0-2.0); EOSINOPHILS % 0.3 % (0.0-5.0); HEMATOCRIT. 27.2 % (36.0-48.0); HEMOGLOBIN. 8.8 g/dL (12.0-16.0); LYMPHOCYTES % 7.2 % (20.0-50.0); MEAN CORPUSCULAR HEMOGLOBIN 24.4 pg (28.0-32.0); MEAN CORPUSCULAR HGB CONC 32.1 g/dL (31.0-37.0); MEAN CORPUSCULAR VOLUME 75.8 fL (81.0-99.0); MEAN PLATELET VOLUME 7.7 fl (7.4-10.4); MONOCYTES % 7.4 % (2.0-8.0); NEUTROPHILS % 84.8 % (40.0-76.0); PLATELET 340 x1000/uL (130-400); RED BLOOD CELL COUNT 3.59 mill/uL (4.2-5.4); RED CELL DISTRIBUTION WIDTH 25.4 % (11.6-14.6); WHITE BLOOD COUNT 10.6 x1000/uL (4.5-11.0)
[2024-07-27 07:14] LABS: CALCIUM 9.1 mg/dL (8.7-10.4)
[2024-07-27 07:25] LABS: CREATININE 4.8 mg/dL (0.6-1.0)
[2024-07-27 07:28] LABS: DIFFERENTIAL COMMENT 1
[2024-07-27 07:29] LABS: ADD RBC MORPHOLOGY YES
[2024-07-27] MEDS: INSULIN REGULAR (HUMULIN R) 1000UNITS/10ML VIAL IV NR (09:37)
[2024-07-27] MEDS: SODIUM BICARBONATE 8.4% 50MEQ/50ML SYR IV NR (11:23)
[2024-07-27] MEDS: FLUOXETINE HCL 10 MG CAPSULE PO SCH (11:24)
[2024-07-27] MEDS: DEXTROSE 50% WATER 50ML SYRINGE IV NR (11:24)
[2024-07-27] MEDS: SODIUM ZIRCONIUM CYCLOSILICATE 10GM/PACKET PO NR (11:25)
[2024-07-27 15:25] LABS: POTASSIUM 6.8 mEq/L (3.5-5.1)
[2024-07-27 15:52] LABS: ANISOCYTOSIS 2+; GIANT PLATELETS 1+; HYPOCHROMASIA 1+; MICROCYTOSIS 1+; PLATELET ESTIMATE NORMAL
[2024-07-27 18:22] LABS: INR 1.2; PROTHROMBIN TIME 13.5 sec (9.6-11.0)
[2024-07-27] MEDS ORDERED: NOREPINEPHRINE 8MG/250ML PMX 250 ML IV ONE ×2 (19:00→19:15)
[2024-07-27] MEDS: EPINEPHRINE 10 MG in SODIUM CHLORIDE 0.9% 240 ML IV PRN (19:36)
[2024-07-27] MEDS: PHENYLEPHRINE 100 MG in DEXT 5% WATER 240 ML IV PRN (19:36)
[2024-07-27] MEDS: NOREPINEPHRINE 32 MG in DEXT 5% WATER 218 ML IV PRN (19:37)
[2024-07-27] MEDS: VASOPRESSIN 20 UNIT in SODIUM CHLORIDE 0.9% 99 ML IV PRN (19:38)
[2024-07-27] MEDS: PROPOFOL 10MG/ML 100ML 100 ML IV PRN (19:55)
[2024-07-27] MEDS ORDERED: IPRATROPIUM BROMIDE (0.02%) 0.5MG/2.5ML NEB HHN PRN (20:15)
[2024-07-27 20:27] LABS: BG BASE EXCESS -11.5 mmol/L (-2.0-3.0); BG CARBOXYHEMOGLOBIN 0.4 % (0.5-1.5); BG DEOXYHEMOGLOBIN 0.3 % (0.0-5.0); BG FRACTION INSPIRED OXYGEN 100; BG OXYGEN SATURATION 99.7 % (94.0-98.0); BG OXYHEMOGLOBIN 99.3 % (94.0-98.0); BG PCO2 35.8 mmHg (32.0-45.0); BG PH 7.239 (7.350-7.450); BG SAMPLE SITE ALINE; BG TOTAL HEMOGLOBIN 7.4 g/dL (12.0-16.0); BG VENT MODE VENT - AC
[2024-07-27 22:37] LABS: CHLORIDE 105 mEq/L (98-107); SODIUM 142 mEq/L (136-145)
[2024-07-27 22:38] LABS: CARBON DIOXIDE 18 mEq/L (21-32)
[2024-07-27 22:39] LABS: CALCIUM 9.1 mg/dL (8.7-10.4)
[2024-07-27 22:43] LABS: CREATININE 3.9 mg/dL (0.6-1.0)
[2024-07-27] MEDS: PANTOPRAZOLE SODIUM 40 MG/VIAL IV SCH (22:43)
[2024-07-27] MEDS: SODIUM BICARBONATE 150 MEQ in DEXTROSE 5% WATER 850 ML IV SCH (22:43)
[2024-07-27 22:44] LABS: GLUCOSE 95 mg/dL (70-105); UREA NITROGEN BLOOD 44 mg/dL (9-23)
[2024-07-27 22:45] LABS: ALANINE AMINOTRANSFERASE 11 IU/L (10-49); ALBUMIN 2.9 g/dL (3.2-4.8); ASPARTATE AMINOTRANSFERASE 66 IU/L (<34)
[2024-07-27 22:46] LABS: BILIRUBIN TOTAL 0.3 mg/dL (0.1-1.0); PROTEIN TOTAL 7.2 g/dL (6.0-8.3)
[2024-07-27 22:47] LABS: BASOPHILS % 0.2 % (0.0-2.0); DIFFERENTIAL COMMENT 1; EOSINOPHILS % 0.2 % (0.0-5.0); HEMATOCRIT. 25.7 % (36.0-48.0); HEMOGLOBIN. 7.7 g/dL (12.0-16.0); LYMPHOCYTES % 11.3 % (20.0-50.0); MEAN CORPUSCULAR HEMOGLOBIN 23.8 pg (28.0-32.0); MEAN CORPUSCULAR VOLUME 79.4 fL (81.0-99.0); MEAN PLATELET VOLUME 7.7 fl (7.4-10.4); MONOCYTES % 2.9 % (2.0-8.0); NEUTROPHILS % 85.4 % (40.0-76.0); PLATELET 291 x1000/uL (130-400); RED BLOOD CELL COUNT 3.23 mill/uL (4.2-5.4); RED CELL DISTRIBUTION WIDTH 26.1 % (11.6-14.6); WHITE BLOOD COUNT 10.2 x1000/uL (4.5-11.0)
[2024-07-27 22:53] LABS: LACTIC ACID 14.1 mmol/L (0.4-2.0); PHOSPHORUS 8.8 mg/dL (2.5-4.9)
[2024-07-27 22:58] LABS: HCG SCREEN NEGATIVE
[2024-07-28] VITALS (112 sets, daily range): BP systolic 72–177; BP diastolic 26–99; PULSE 65–131; RESP 20–33; TEMP 33.72492–37.55856; O2SAT 93–100
[2024-07-28 00:23] LABS: BG BASE EXCESS -2.6 mmol/L (-2.0-3.0); BG CARBOXYHEMOGLOBIN 2.9 % (0.5-1.5); BG DEOXYHEMOGLOBIN 1.2 % (0.0-5.0); BG FRACTION INSPIRED OXYGEN 40; BG HCO3 ACT 22.1 mmol/L (21.0-28.0); BG METHEMOGLOBIN 0.1 % (0.5-1.5); BG OXYGEN SATURATION 98.8 % (94.0-98.0); BG OXYHEMOGLOBIN 95.8 % (94.0-98.0); BG PCO2 37.2 mmHg (32.0-45.0); BG PH 7.391 (7.350-7.450); BG PO2 103.6 mmHg (83.0-108.0); BG SAMPLE SITE ALINE; BG TOTAL HEMOGLOBIN 7.8 g/dL (12.0-16.0); BG VENT MODE VENT - AC
[2024-07-28] MEDS: CALCIUM GLUCONATE 1GM PREMIX 50 ML IV NR ×3 (01:13→21:24)
[2024-07-28] MEDS: DEXTROSE 50% WATER 50ML SYRINGE IV NR ×3 (01:14→21:26)
[2024-07-28] MEDS: INSULIN REGULAR (HUMULIN R) 1000UNITS/10ML VIAL IV NR ×3 (01:15→21:28)
[2024-07-28 06:34] LABS: CALCIUM 8.7 mg/dL (8.7-10.4)
[2024-07-28 06:40] LABS: CREATININE 4.1 mg/dL (0.6-1.0)
[2024-07-28 06:42] LABS: BASOPHILS % 0.2 % (0.0-2.0); HEMATOCRIT. 24.1 % (36.0-48.0); HEMOGLOBIN. 7.7 g/dL (12.0-16.0); LYMPHOCYTES % 7.7 % (20.0-50.0); MEAN CORPUSCULAR HEMOGLOBIN 23.9 pg (28.0-32.0); MEAN CORPUSCULAR VOLUME 74.5 fL (81.0-99.0); MEAN PLATELET VOLUME 7.2 fl (7.4-10.4); MONOCYTES % 5.9 % (2.0-8.0); NEUTROPHILS % 86.2 % (40.0-76.0); PLATELET 294 x1000/uL (130-400); RED BLOOD CELL COUNT 3.24 mill/uL (4.2-5.4); RED CELL DISTRIBUTION WIDTH 25.6 % (11.6-14.6); WHITE BLOOD COUNT 10.7 x1000/uL (4.5-11.0)
[2024-07-28 06:46] LABS: POTASSIUM 7.2 mEq/L (3.5-5.1)
[2024-07-28 07:16] LABS: DIFFERENTIAL COMMENT 1
[2024-07-28 08:53] LABS: BG CARBOXYHEMOGLOBIN 0.1 % (0.5-1.5); BG DEOXYHEMOGLOBIN 0.5 % (0.0-5.0); BG FRACTION INSPIRED OXYGEN 40; BG HCO3 ACT 25.3 mmol/L (21.0-28.0); BG METHEMOGLOBIN 0.3 % (0.5-1.5); BG OXYGEN SATURATION 99.5 % (94.0-98.0); BG OXYHEMOGLOBIN 99.1 % (94.0-98.0); BG PO2 175.4 mmHg (83.0-108.0); BG SAMPLE SITE ALINE; BG TOTAL HEMOGLOBIN 8.3 g/dL (12.0-16.0); BG VENT MODE VENT - AC
[2024-07-28] MEDS: PIPERACILLIN/TAZO 3.375G/50ML 50 ML IV SCH (12:12)
[2024-07-28 12:41] LABS: LACTIC ACID 2.6 mmol/L (0.4-2.0)
[2024-07-28] MEDS: ENOXAPARIN 80MG/0.8ML SYR SUBCUT SCH (13:35)
[2024-07-28] MEDS: VANCOMYCIN 1.5GM/250ML IV NR (13:36)
[2024-07-28 14:18] LABS: TROPONIN I HIGH SENSITIVITY 3745 ng/L (3.0-34)
[2024-07-28 15:22] LABS: POTASSIUM 6.1 mEq/L (3.5-5.1)
[2024-07-28 15:23] LABS: CALCIUM 8.6 mg/dL (8.7-10.4)
[2024-07-28 20:06] LABS: TROPONIN I HIGH SENSITIVITY 3812 ng/L (3.0-34)
[2024-07-28] MEDS: SODIUM ZIRCONIUM CYCLOSILICATE 10GM/PACKET PO NR (20:40)
[2024-07-28] MEDS: LEVETIRACETAM 1000MG PREMIX 100 ML IV SCH (20:40)
[2024-07-28] MEDS: SODIUM BICARBONATE 8.4% 50MEQ/50ML SYR IV NR (21:26)
[2024-07-29] VITALS (108 sets, daily range): BP systolic 79–166; BP diastolic 42–98; PULSE 72–103; RESP 19–33; TEMP 35.66952–36.72516; O2SAT 98–100
[2024-07-29] MEDS: PROPOFOL 10MG/ML 100ML 100 ML IV PRN ×2 (00:19→23:45)
[2024-07-29 05:37] LABS: INR 1.3; PROTHROMBIN TIME 14.7 sec (9.6-11.0)
[2024-07-29 05:51] LABS: CHLORIDE 99 mEq/L (98-107); HEMATOCRIT. 24.4 % (36.0-48.0); HEMOGLOBIN. 7.8 g/dL (12.0-16.0); MEAN CORPUSCULAR HEMOGLOBIN 23.4 pg (28.0-32.0); MEAN CORPUSCULAR HGB CONC 31.8 g/dL (31.0-37.0); MEAN CORPUSCULAR VOLUME 73.6 fL (81.0-99.0); MEAN PLATELET VOLUME 7.4 fl (7.4-10.4); PLATELET 299 x1000/uL (130-400); RED BLOOD CELL COUNT 3.32 mill/uL (4.2-5.4); RED CELL DISTRIBUTION WIDTH 25.8 % (11.6-14.6); SODIUM 138 mEq/L (136-145); WHITE BLOOD COUNT 17.7 x1000/uL (4.5-11.0)
[2024-07-29 05:52] LABS: CALCIUM 8.2 mg/dL (8.7-10.4); CARBON DIOXIDE 27 mEq/L (21-32)
[2024-07-29 05:57] LABS: CREATININE 3.3 mg/dL (0.6-1.0); GLUCOSE 105 mg/dL (70-105); TRIGLYCERIDE 181 mg/dL (0-150); UREA NITROGEN BLOOD 42 mg/dL (9-23)
[2024-07-29 05:59] LABS: ALANINE AMINOTRANSFERASE 10 IU/L (10-49); ALBUMIN 2.8 g/dL (3.2-4.8); ASPARTATE AMINOTRANSFERASE 57 IU/L (<34); BILIRUBIN TOTAL 0.2 mg/dL (0.1-1.0); PROTEIN TOTAL 7.1 g/dL (6.0-8.3)
[2024-07-29 07:22] LABS: DIFFERENTIAL COMMENT 1
[2024-07-29 07:45] LABS: TROPONIN I HIGH SENSITIVITY 3058 ng/L (3.0-34)
[2024-07-29 07:46] LABS: POTASSIUM 6.4 mEq/L (3.5-5.1)
[2024-07-29] MEDS: SODIUM BICARBONATE 8.4% 50MEQ/50ML SYR IV SCH (08:26)
[2024-07-29] MEDS: INSULIN REGULAR (HUMULIN R) 1000UNITS/10ML VIAL IV SCH (08:27)
[2024-07-29] MEDS: SODIUM ZIRCONIUM CYCLOSILICATE 10GM/PACKET PO SCH (08:27)
[2024-07-29] MEDS: DEXTROSE 50% WATER 50ML SYRINGE IV SCH (08:28)
[2024-07-29] MEDS ORDERED: LEVETIRACETAM 1,000MG in NACL 100ML PREMIX IV PRN (08:45)
[2024-07-29 16:55] LABS: TROPONIN I HIGH SENSITIVITY 2062 ng/L (3.0-34)
[2024-07-29 19:38] LABS: ANISOCYTOSIS 2+; HYPOCHROMASIA 1+; MICROCYTOSIS 2+; PLATELET ESTIMATE NORMAL
[2024-07-29 19:39] LABS: TARGET CELLS FEW
[2024-07-30] VITALS (107 sets, daily range): BP systolic 91–152; BP diastolic 61–93; PULSE 85–115; RESP 22–30; TEMP 36.61404–37.00296; O2SAT 96–100
[2024-07-30 00:13] LABS: POTASSIUM 5.3 mEq/L (3.5-5.1)
[2024-07-30 00:14] LABS: CALCIUM 7.7 mg/dL (8.7-10.4)
[2024-07-30 00:19] LABS: CREATININE 2.7 mg/dL (0.6-1.0)
[2024-07-30] MEDS: LORAZEPAM 2MG/ML INJ IV NR (03:57)
[2024-07-30] MEDS: SODIUM ZIRCONIUM CYCLOSILICATE 10GM/PACKET PO NR (05:05)
[2024-07-30] MEDS: MIDAZOLAM 100MG/100ML PMX 100 ML IV PRN (05:06)
[2024-07-30 05:22] LABS: POTASSIUM 5.5 mEq/L (3.5-5.1)
[2024-07-30 05:23] LABS: CALCIUM 7.9 mg/dL (8.7-10.4)
[2024-07-30 05:28] LABS: CREATININE 2.9 mg/dL (0.6-1.0)
[2024-07-30] MEDS: VANCOMYCIN 1GM/200ML PMX (BAXTER) IV SCH (11:58)
[2024-07-31] VITALS (94 sets, daily range): BP systolic 88–121; BP diastolic 57–90; PULSE 88–108; RESP 21–32; TEMP 36.61404–36.83628; O2SAT 79–100
[2024-07-31 06:07] LABS: CHLORIDE 96 mEq/L (98-107); POTASSIUM 5.7 mEq/L (3.5-5.1); SODIUM 136 mEq/L (136-145)
[2024-07-31 06:08] LABS: CALCIUM 7.3 mg/dL (8.7-10.4); CARBON DIOXIDE 27 mEq/L (21-32)
[2024-07-31 06:13] LABS: CREATININE 3.5 mg/dL (0.6-1.0); GLUCOSE 105 mg/dL (70-105); UREA NITROGEN BLOOD 50 mg/dL (9-23)
[2024-07-31 08:08] LABS: % CD 4 POS. LYMPHOCYTES 38.8 % (30.8-58.5); % CD 8 POS. LYMPH 42.7 % (12.0-35.5); ABSOLUTE CD 3 492 /uL (622-2402); ABSOLUTE CD 4 HELPER 233 /uL (359-1519); ABSOLUTE CD 8 SUPPRESSOR 256 /uL (109-897); ABSOLUTE LYMPHOCYTES 0.6 x10E3/uL (0.7-3.1); ABSOLUTE MONOCYTES 0.9 x10E3/uL (0.1-0.9); ABSOLUTE NEUTROPHILS 17.6 x10E3/uL (1.4-7.0); BASOPHILS 0 % (Not Estab.); CD4/CD8 RATIO 0.91 (0.92-3.72); EOSINOPHILS 0 % (Not Estab.); HEMOGLOBIN 7.1 g/dL (11.1-15.9); IMMATURE GRANULOCYTES 1 % (Not Estab.); IMMATURE GRANULOCYTES ABSOLUTE 0.2 x10E3/uL (0.0-0.1); LYMPHOCYTES 3 % (Not Estab.); MEAN CORPUSCULAR HEMOGLOBIN 23.7 pg (26.6-33.0); MEAN CORPUSCULAR HGB CONC. 32.3 g/dL (31.5-35.7); MEAN CORPUSCULAR VOLUME 73 fL (79-97); MONOCYTES 5 % (Not Estab.); NEUTROPHILS 91 % (Not Estab.); PLATELETS 254 x10E3/uL (150-450); RED CELL DISTRIBUTION WIDTH 21.5 % (11.7-15.4); WBC 19.4 x10E3/uL (3.4-10.8)
[2024-07-31 08:09] LABS: MEAN CORPUSCULAR HEMOGLOBIN 23.6 pg (28.0-32.0); MEAN CORPUSCULAR HGB CONC 31.8 g/dL (31.0-37.0); MEAN CORPUSCULAR VOLUME 74.1 fL (81.0-99.0); MEAN PLATELET VOLUME 8.3 fl (7.4-10.4); PLATELET 264 x1000/uL (130-400); RED BLOOD CELL COUNT 2.84 mill/uL (4.2-5.4); RED CELL DISTRIBUTION WIDTH 25.8 % (11.6-14.6); WHITE BLOOD COUNT 16.1 x1000/uL (4.5-11.0)
[2024-07-31 08:23] LABS: DIFFERENTIAL COMMENT 1
[2024-07-31 08:25] LABS: HEMOGLOBIN. 6.7 g/dL (12.0-16.0)
[2024-07-31 08:26] LABS: ADD RBC MORPHOLOGY NO
[2024-07-31 08:27] LABS: BASOPHILS % 0.2 % (0.0-2.0); EOSINOPHILS % 0.3 % (0.0-5.0); LYMPHOCYTES % 8.3 % (20.0-50.0); MONOCYTES % 6.3 % (2.0-8.0); NEUTROPHILS % 84.9 % (40.0-76.0)
[2024-07-31 22:17] LABS: HEMATOCRIT 25.7 % (36.0-48.0); HEMOGLOBIN 8.3 g/dL (12.0-16.0)
[2024-08-01] VITALS (104 sets, daily range): BP systolic 75–138; BP diastolic 51–104; PULSE 66–100; RESP 18–27; TEMP 36.6696–37.16964; O2SAT 84–100
[2024-08-01 05:31] LABS: POTASSIUM 5.1 mEq/L (3.5-5.1)
[2024-08-01 05:33] LABS: CALCIUM 7.7 mg/dL (8.7-10.4)
[2024-08-01 05:37] LABS: CREATININE 3.1 mg/dL (0.6-1.0)
[2024-08-01] MEDS: LANTHANUM CARBONATE 500MG CHEW TABLET PO SCH (06:01)
[2024-08-01] MEDS: SODIUM ZIRCONIUM CYCLOSILICATE 10GM/PACKET PO NR (08:54)
[2024-08-01 11:02] LABS: HEMATOCRIT. 26.1 % (36.0-48.0); HEMOGLOBIN. 8.5 g/dL (12.0-16.0); MEAN CORPUSCULAR HEMOGLOBIN 24.6 pg (28.0-32.0); MEAN CORPUSCULAR HGB CONC 32.5 g/dL (31.0-37.0); MEAN CORPUSCULAR VOLUME 75.6 fL (81.0-99.0); MEAN PLATELET VOLUME 7.8 fl (7.4-10.4); PLATELET 230 x1000/uL (130-400); RED BLOOD CELL COUNT 3.45 mill/uL (4.2-5.4); RED CELL DISTRIBUTION WIDTH 24.4 % (11.6-14.6); WHITE BLOOD COUNT 11.8 x1000/uL (4.5-11.0)
[2024-08-01 11:11] LABS: DIFFERENTIAL COMMENT 1
[2024-08-01 12:21] LABS: ANISOCYTOSIS 4+; MICROCYTOSIS 1+; PLATELET ESTIMATE NORMAL; TARGET CELLS 1+
[2024-08-02] VITALS (97 sets, daily range): BP systolic 87–129; BP diastolic 57–113; PULSE 60–108; RESP 16–24; TEMP 35.78064–37.2252; O2SAT 80–100
[2024-08-02 05:26] LABS: HEMATOCRIT. 26.5 % (36.0-48.0); HEMOGLOBIN. 8.7 g/dL (12.0-16.0); MEAN CORPUSCULAR HEMOGLOBIN 24.4 pg (28.0-32.0); MEAN CORPUSCULAR HGB CONC 32.7 g/dL (31.0-37.0); MEAN CORPUSCULAR VOLUME 74.8 fL (81.0-99.0); MEAN PLATELET VOLUME 7.9 fl (7.4-10.4); PLATELET 237 x1000/uL (130-400); RED BLOOD CELL COUNT 3.54 mill/uL (4.2-5.4); RED CELL DISTRIBUTION WIDTH 24.4 % (11.6-14.6)
[2024-08-02 05:34] LABS: CALCIUM 7.5 mg/dL (8.7-10.4); CARBON DIOXIDE 26 mEq/L (21-32); CHLORIDE 95 mEq/L (98-107); POTASSIUM 4.4 mEq/L (3.5-5.1); SODIUM 135 mEq/L (136-145)
[2024-08-02 05:40] LABS: CREATININE 3.6 mg/dL (0.6-1.0); GLUCOSE 100 mg/dL (70-105); UREA NITROGEN BLOOD 58 mg/dL (9-23)
[2024-08-02 05:52] LABS: PHOSPHORUS 8.6 mg/dL (2.5-4.9)
[2024-08-02 06:39] LABS: DIFFERENTIAL COMMENT 1
[2024-08-02] MEDS: LIDOCAINE HCL 1% 10 MG/ML 10ML VIAL ONE (08:22)
[2024-08-02] MEDS ORDERED: IPRATROPIUM BROMIDE (0.02%) 0.5MG/2.5ML NEB HHN PRN (11:15)
[2024-08-02 15:42] LABS: ANISOCYTOSIS 2+; HYPOCHROMASIA 1+; MICROCYTOSIS 2+; PLATELET ESTIMATE NORMAL
[2024-08-02] MEDS: PIPERACILLIN/TAZO 3.375G/50ML 50 ML IV SCH (20:55)
[2024-08-03] VITALS (89 sets, daily range): BP systolic 89–135; BP diastolic 62–100; PULSE 65–103; RESP 17–28; TEMP 36.33624–36.9474; O2SAT 93–100
[2024-08-03 05:55] LABS: POTASSIUM 4.5 mEq/L (3.5-5.1)
[2024-08-03 05:57] LABS: CALCIUM 8.1 mg/dL (8.7-10.4)
[2024-08-03 06:06] LABS: BASOPHILS % 0.4 % (0.0-2.0); EOSINOPHILS % 0.1 % (0.0-5.0); HEMATOCRIT. 27.2 % (36.0-48.0); HEMOGLOBIN. 8.8 g/dL (12.0-16.0); LYMPHOCYTES % 7.6 % (20.0-50.0); MEAN CORPUSCULAR HEMOGLOBIN 24.5 pg (28.0-32.0); MEAN CORPUSCULAR HGB CONC 32.2 g/dL (31.0-37.0); MEAN PLATELET VOLUME 8.3 fl (7.4-10.4); MONOCYTES % 7.3 % (2.0-8.0); NEUTROPHILS % 84.6 % (40.0-76.0); PLATELET 257 x1000/uL (130-400); RED BLOOD CELL COUNT 3.58 mill/uL (4.2-5.4); RED CELL DISTRIBUTION WIDTH 24.8 % (11.6-14.6)
[2024-08-03 08:18] LABS: DIFFERENTIAL COMMENT 1
[2024-08-03 08:19] LABS: ADD RBC MORPHOLOGY NO
[2024-08-03] MEDS: MEROPENEM 500MG/50ML 50 ML IV SCH (13:08)
[2024-08-03] MEDS: DAPTOMYCIN 750 MG in SODIUM CHLORIDE 0.9% 50 ML IV SCH (14:03)
[2024-08-03 16:24] LABS: CREATINE KINASE 37 IU/L (34-145)
[2024-08-04] VITALS (116 sets, daily range): BP systolic 77–124; BP diastolic 59–90; PULSE 94–118; RESP 16–25; TEMP 34.4472–36.9474; O2SAT 94–100
[2024-08-04 05:39] LABS: BASOPHILS % 0.5 % (0.0-2.0); EOSINOPHILS % 0.2 % (0.0-5.0); HEMOGLOBIN. 8.7 g/dL (12.0-16.0); LYMPHOCYTES % 7.8 % (20.0-50.0); MEAN CORPUSCULAR HEMOGLOBIN 24.4 pg (28.0-32.0); MEAN CORPUSCULAR VOLUME 76.3 fL (81.0-99.0); MEAN PLATELET VOLUME 8.2 fl (7.4-10.4); MONOCYTES % 7.2 % (2.0-8.0); NEUTROPHILS % 84.3 % (40.0-76.0); PLATELET 275 x1000/uL (130-400); RED BLOOD CELL COUNT 3.54 mill/uL (4.2-5.4); RED CELL DISTRIBUTION WIDTH 24.2 % (11.6-14.6)
[2024-08-04 05:53] LABS: CALCIUM 8.2 mg/dL (8.7-10.4); POTASSIUM 4.3 mEq/L (3.5-5.1)
[2024-08-04 05:59] LABS: CREATININE 4.3 mg/dL (0.6-1.0)
[2024-08-04 06:04] LABS: INR 1.1; PROTHROMBIN TIME 11.9 sec (9.6-11.0)
[2024-08-04 07:14] LABS: DIFFERENTIAL COMMENT 1
[2024-08-04] MEDS ORDERED: LIDOCAINE HCL 1% 10 MG/ML 10ML VIAL ONE (07:30)
[2024-08-04] MEDS: ENOXAPARIN 100MG/ML SYR SUBCUT SCH (11:14)
[2024-08-05] VITALS (92 sets, daily range): BP systolic 86–134; BP diastolic 61–95; PULSE 76–120; RESP 19–26; TEMP 36.16956–37.2252; O2SAT 94–100
[2024-08-05 06:24] LABS: POTASSIUM 3.8 mEq/L (3.5-5.1)
[2024-08-05 06:25] LABS: CALCIUM 8.6 mg/dL (8.7-10.4)
[2024-08-05 06:29] LABS: CREATININE 3.7 mg/dL (0.6-1.0)
[2024-08-05 06:32] LABS: PHOSPHORUS 7.5 mg/dL (2.5-4.9)
[2024-08-05 08:18] LABS: HEMATOCRIT. 29.3 % (36.0-48.0); HEMOGLOBIN. 9.4 g/dL (12.0-16.0); MEAN CORPUSCULAR HEMOGLOBIN 24.7 pg (28.0-32.0); MEAN CORPUSCULAR HGB CONC 32.1 g/dL (31.0-37.0); MEAN CORPUSCULAR VOLUME 77.1 fL (81.0-99.0); MEAN PLATELET VOLUME 8.3 fl (7.4-10.4); PLATELET 308 x1000/uL (130-400); RED BLOOD CELL COUNT 3.81 mill/uL (4.2-5.4); RED CELL DISTRIBUTION WIDTH 24.6 % (11.6-14.6); WHITE BLOOD COUNT 10.4 x1000/uL (4.5-11.0)
[2024-08-05 09:09] LABS: DIFFERENTIAL COMMENT 1
[2024-08-05] MEDS: MEROPENEM 500 MG in SODIUM CHLORIDE 0.9% 50 ML IV SCH (12:44)
[2024-08-05 16:08] LABS: ANISOCYTOSIS 4+; MICROCYTOSIS 1+; PLATELET ESTIMATE NORMAL
[2024-08-06] VITALS (93 sets, daily range): BP systolic 77–168; BP diastolic 43–104; PULSE 71–105; RESP 17–24; TEMP 36.28068–36.89184; O2SAT 92–100
[2024-08-06 04:56] LABS: BASOPHILS % 0.5 % (0.0-2.0); EOSINOPHILS % 0.3 % (0.0-5.0); HEMATOCRIT. 27.6 % (36.0-48.0); HEMOGLOBIN. 8.8 g/dL (12.0-16.0); LYMPHOCYTES % 8.4 % (20.0-50.0); MEAN CORPUSCULAR HEMOGLOBIN 24.6 pg (28.0-32.0); MEAN PLATELET VOLUME 8.2 fl (7.4-10.4); MONOCYTES % 4.7 % (2.0-8.0); NEUTROPHILS % 86.1 % (40.0-76.0); PLATELET 346 x1000/uL (130-400); RED BLOOD CELL COUNT 3.59 mill/uL (4.2-5.4); RED CELL DISTRIBUTION WIDTH 24.2 % (11.6-14.6); WHITE BLOOD COUNT 11.1 x1000/uL (4.5-11.0)
[2024-08-06 05:01] LABS: DIFFERENTIAL COMMENT 1
[2024-08-06 05:24] LABS: POTASSIUM 3.7 mEq/L (3.5-5.1)
[2024-08-06 05:25] LABS: CALCIUM 8.5 mg/dL (8.7-10.4)
[2024-08-06 05:30] LABS: CREATININE 3.8 mg/dL (0.6-1.0)
[2024-08-06] MEDS: MEROPENEM 500MG/50ML 50 ML IV SCH (12:23)
[2024-08-07] VITALS (100 sets, daily range): BP systolic 50–125; BP diastolic 26–93; PULSE 80–114; RESP 18–26; TEMP 36.44736–36.83628; O2SAT 0–100
[2024-08-07 05:51] LABS: HEMATOCRIT. 28.7 % (36.0-48.0); HEMOGLOBIN. 9.4 g/dL (12.0-16.0); MEAN CORPUSCULAR HEMOGLOBIN 25.1 pg (28.0-32.0); MEAN CORPUSCULAR HGB CONC 32.9 g/dL (31.0-37.0); MEAN CORPUSCULAR VOLUME 76.5 fL (81.0-99.0); MEAN PLATELET VOLUME 8.2 fl (7.4-10.4); PLATELET 397 x1000/uL (130-400); RED BLOOD CELL COUNT 3.76 mill/uL (4.2-5.4); RED CELL DISTRIBUTION WIDTH 24.7 % (11.6-14.6); WHITE BLOOD COUNT 12.3 x1000/uL (4.5-11.0)
[2024-08-07 05:54] LABS: POTASSIUM 3.5 mEq/L (3.5-5.1)
[2024-08-07 05:56] LABS: CALCIUM 8.5 mg/dL (8.7-10.4)
[2024-08-07 06:00] LABS: CREATININE 4.2 mg/dL (0.6-1.0)
[2024-08-07 07:46] LABS: DIFFERENTIAL COMMENT 1
[2024-08-07] MEDS: DAPTOMYCIN 700 MG in SODIUM CHLORIDE 0.9% 50 ML IV SCH (14:06)
[2024-08-07] MEDS: LEVETIRACETAM 1000MG PREMIX 100 ML IV PRN (14:07)
[2024-08-07] MEDS: MIDAZOLAM HCL 2 MG/2 ML VIAL IV NR (15:56)
[2024-08-07 20:55] LABS: MICROCYTOSIS 1+; PLATELET ESTIMATE NORMAL
[2024-08-07 20:56] LABS: ANISOCYTOSIS 2+
[2024-08-08] VITALS (103 sets, daily range): BP systolic 75–133; BP diastolic 55–95; PULSE 86–116; RESP 21–30; TEMP 36.6696–37.2252; O2SAT 96–100
[2024-08-08 06:50] LABS: BASOPHILS % 0.3 % (0.0-2.0); EOSINOPHILS % 0.1 % (0.0-5.0); HEMATOCRIT. 26.2 % (36.0-48.0); HEMOGLOBIN. 8.1 g/dL (12.0-16.0); LYMPHOCYTES % 8.3 % (20.0-50.0); MEAN CORPUSCULAR HEMOGLOBIN 24.1 pg (28.0-32.0); MEAN CORPUSCULAR VOLUME 77.6 fL (81.0-99.0); MEAN PLATELET VOLUME 8.7 fl (7.4-10.4); NEUTROPHILS % 87.3 % (40.0-76.0); PLATELET 419 x1000/uL (130-400); RED BLOOD CELL COUNT 3.38 mill/uL (4.2-5.4); RED CELL DISTRIBUTION WIDTH 24.1 % (11.6-14.6); WHITE BLOOD COUNT 11.2 x1000/uL (4.5-11.0)
[2024-08-08 06:51] LABS: CHLORIDE 99 mEq/L (98-107); POTASSIUM 3.8 mEq/L (3.5-5.1); SODIUM 138 mEq/L (136-145)
[2024-08-08 06:52] LABS: CALCIUM 8.6 mg/dL (8.7-10.4); CARBON DIOXIDE 24 mEq/L (21-32)
[2024-08-08 06:57] LABS: CREATININE 3.7 mg/dL (0.6-1.0); GLUCOSE 109 mg/dL (70-105)
[2024-08-08 06:58] LABS: ALANINE AMINOTRANSFERASE 10 IU/L (10-49); ASPARTATE AMINOTRANSFERASE 39 IU/L (<34); UREA NITROGEN BLOOD 67 mg/dL (9-23)
[2024-08-08 07:00] LABS: BILIRUBIN TOTAL 0.2 mg/dL (0.1-1.0); PHOSPHORUS 7.3 mg/dL (2.5-4.9); PROTEIN TOTAL 7.1 g/dL (6.0-8.3)
[2024-08-08 07:14] LABS: DIFFERENTIAL COMMENT 1
[2024-08-08] MEDS: ENOXAPARIN 100MG/ML SYR SUBCUT SCH (11:43)
[2024-08-09] VITALS (110 sets, daily range): BP systolic 79–142; BP diastolic 21–116; PULSE 65–112; RESP 16–26; TEMP 36.3918–37.05852; O2SAT 0–100
[2024-08-09 06:37] LABS: POTASSIUM 3.5 mEq/L (3.5-5.1)
[2024-08-09 06:38] LABS: CALCIUM 8.5 mg/dL (8.7-10.4)
[2024-08-09 06:42] LABS: HEMATOCRIT. 25.3 % (36.0-48.0); MEAN CORPUSCULAR HEMOGLOBIN 24.3 pg (28.0-32.0); MEAN CORPUSCULAR HGB CONC 31.4 g/dL (31.0-37.0); MEAN CORPUSCULAR VOLUME 77.5 fL (81.0-99.0); MEAN PLATELET VOLUME 8.5 fl (7.4-10.4); PLATELET 450 x1000/uL (130-400); RED BLOOD CELL COUNT 3.27 mill/uL (4.2-5.4); WHITE BLOOD COUNT 12.2 x1000/uL (4.5-11.0)
[2024-08-09 06:43] LABS: CREATININE 4.1 mg/dL (0.6-1.0)
[2024-08-09 07:13] LABS: DIFFERENTIAL COMMENT 1
[2024-08-09] MEDS ORDERED: PHENYLEPHRINE 100 MG in DEXT 5% WATER 240 ML IV PRN (10:00)
[2024-08-09] MEDS: ALBUMIN HUMAN 25GM/100ML (25%) IV NR (10:55)
[2024-08-09 14:08] LABS: PLATELET ESTIMATE INCREASED
[2024-08-09 14:09] LABS: ANISOCYTOSIS 3+; TARGET CELLS FEW
[2024-08-10] VITALS (91 sets, daily range): BP systolic 79–120; BP diastolic 58–90; PULSE 78–108; RESP 20–27; TEMP 36.114–37.16964; O2SAT 0–100
[2024-08-11] VITALS (88 sets, daily range): BP systolic 98–130; BP diastolic 65–97; PULSE 66–109; RESP 14–24; TEMP 36.55848–36.83628; O2SAT 80–100
[2024-08-11 06:26] LABS: CREATINE KINASE 35 IU/L (34-145)
[2024-08-12] VITALS (99 sets, daily range): BP systolic 84–129; BP diastolic 38–91; PULSE 64–103; RESP 6–24; TEMP 36.33624–36.83628; O2SAT 87–100
[2024-08-12 07:02] LABS: ALBUMIN 2.8 g/dL (3.2-4.8)
[2024-08-12 07:03] LABS: PREALBUMIN 7.7 mg/dl (10.0-40.0)
[2024-08-12 10:20] LABS: POTASSIUM 4.8 mEq/L (3.5-5.1)
[2024-08-12 10:22] LABS: CALCIUM 8.5 mg/dL (8.7-10.4)
[2024-08-12 10:26] LABS: CREATININE 4.2 mg/dL (0.6-1.0)
[2024-08-12] MEDS ORDERED: NON FORMULARY MED INJ SCH (10:30)
[2024-08-12] MEDS: IRON SUCROSE COMPLEX 100 MG/5 ML ML IV SCH (11:04)
[2024-08-12 15:52] LABS: BASOPHILS % 0.7 % (0.0-2.0); EOSINOPHILS % 0.2 % (0.0-5.0); HEMATOCRIT. 24.3 % (36.0-48.0); HEMOGLOBIN. 7.8 g/dL (12.0-16.0); LYMPHOCYTES % 11.9 % (20.0-50.0); MEAN CORPUSCULAR HGB CONC 32.3 g/dL (31.0-37.0); MEAN CORPUSCULAR VOLUME 77.5 fL (81.0-99.0); MEAN PLATELET VOLUME 8.5 fl (7.4-10.4); MONOCYTES % 6.9 % (2.0-8.0); NEUTROPHILS % 80.3 % (40.0-76.0); PLATELET 537 x1000/uL (130-400); RED BLOOD CELL COUNT 3.14 mill/uL (4.2-5.4); RED CELL DISTRIBUTION WIDTH 23.5 % (11.6-14.6); WHITE BLOOD COUNT 9.5 x1000/uL (4.5-11.0)
[2024-08-12 16:08] LABS: DIFFERENTIAL COMMENT 1
[2024-08-12] MEDS ORDERED: ROCURONIUM BROMIDE 10MG/ML VIAL 5ML IV ONE ×2 (17:26→17:46)
[2024-08-12] MEDS ORDERED: MIDAZOLAM HCL 2 MG/2 ML VIAL ONE (17:30)
[2024-08-13] VITALS (106 sets, daily range): BP systolic 95–132; BP diastolic 34–88; PULSE 51–81; RESP 18–24; TEMP 36.3918–36.78072; O2SAT 92–100
[2024-08-13 06:17] LABS: BASOPHILS % 0.5 % (0.0-2.0); EOSINOPHILS % 0.2 % (0.0-5.0); HEMATOCRIT. 23.5 % (36.0-48.0); HEMOGLOBIN. 7.7 g/dL (12.0-16.0); LYMPHOCYTES % 10.9 % (20.0-50.0); MEAN CORPUSCULAR HEMOGLOBIN 24.8 pg (28.0-32.0); MEAN CORPUSCULAR HGB CONC 32.7 g/dL (31.0-37.0); MEAN CORPUSCULAR VOLUME 75.9 fL (81.0-99.0); MEAN PLATELET VOLUME 8.3 fl (7.4-10.4); MONOCYTES % 2.8 % (2.0-8.0); NEUTROPHILS % 85.6 % (40.0-76.0); PLATELET 538 x1000/uL (130-400); RED CELL DISTRIBUTION WIDTH 23.3 % (11.6-14.6); WHITE BLOOD COUNT 7.9 x1000/uL (4.5-11.0)
[2024-08-13 06:24] LABS: CALCIUM 8.8 mg/dL (8.7-10.4); CARBON DIOXIDE 21 mEq/L (21-32); CHLORIDE 100 mEq/L (98-107); SODIUM 137 mEq/L (136-145)
[2024-08-13 06:29] LABS: FOLIC ACID (FOLATE) SERUM 3.91 ng/mL (>5.38); VITAMIN B12 SERUM 664 pg/mL (211-911)
[2024-08-13 06:30] LABS: CREATININE 3.4 mg/dL (0.6-1.0); GLUCOSE 72 mg/dL (70-105); UREA NITROGEN BLOOD 61 mg/dL (9-23)
[2024-08-13 07:00] LABS: DIFFERENTIAL COMMENT 1
[2024-08-13 08:13] LABS: ALANINE AMINOTRANSFERASE 14 IU/L (10-49); ALBUMIN 2.9 g/dL (3.2-4.8); ASPARTATE AMINOTRANSFERASE 49 IU/L (<34); BILIRUBIN TOTAL 0.2 mg/dL (0.1-1.0); PROTEIN TOTAL 6.7 g/dL (6.0-8.3)
[2024-08-13 08:19] LABS: BILIRUBIN DIRECT < 0.1 mg/dL (<=3.0)
[2024-08-13] MEDS: POTASSIUM CHLORIDE 20MEQ/PACKET PO NR (10:19)
[2024-08-13] MEDS: LIDOCAINE HCL 1% 10 MG/ML 10ML VIAL ONE (10:19)
[2024-08-13] MEDS: SODIUM BICARBONATE 8.4% 50MEQ/50ML SYR IV ONE (10:19)
[2024-08-13] MEDS: IOHEXOL-350 100 ML BOTTLE ONE (10:19)
[2024-08-13] MEDS: EPINEPHRINE 0.1MG/ML (1:10,000) 10ML SYR ONE (10:19)
[2024-08-13] MEDS: HEPARIN 1000 UNITS/ML 10ML ONE (10:20)
[2024-08-13] MEDS: MIDODRINE HCL 5MG TABLET PO SCH (12:54)
[2024-08-14] VITALS (107 sets, daily range): BP systolic 76–127; BP diastolic 27–96; PULSE 53–126; RESP 15–35; TEMP 36.22512–36.9474; O2SAT 96–100
[2024-08-14 06:17] LABS: BASOPHILS % 0.5 % (0.0-2.0); EOSINOPHILS % 0.3 % (0.0-5.0); HEMATOCRIT. 25.1 % (36.0-48.0); HEMOGLOBIN. 7.8 g/dL (12.0-16.0); LYMPHOCYTES % 10.1 % (20.0-50.0); MEAN CORPUSCULAR HEMOGLOBIN 24.2 pg (28.0-32.0); MEAN CORPUSCULAR HGB CONC 31.2 g/dL (31.0-37.0); MEAN CORPUSCULAR VOLUME 77.6 fL (81.0-99.0); MEAN PLATELET VOLUME 8.4 fl (7.4-10.4); MONOCYTES % 4.9 % (2.0-8.0); NEUTROPHILS % 84.2 % (40.0-76.0); PLATELET 557 x1000/uL (130-400); RED BLOOD CELL COUNT 3.24 mill/uL (4.2-5.4); RED CELL DISTRIBUTION WIDTH 23.6 % (11.6-14.6); WHITE BLOOD COUNT 8.1 x1000/uL (4.5-11.0)
[2024-08-14 06:20] LABS: DIFFERENTIAL COMMENT 1
[2024-08-14 06:56] LABS: POTASSIUM 3.3 mEq/L (3.5-5.1)
[2024-08-14 06:57] LABS: CALCIUM 8.6 mg/dL (8.7-10.4)
[2024-08-14 07:02] LABS: CREATININE 3.7 mg/dL (0.6-1.0)
[2024-08-14] MEDS: POTASSIUM CHLORIDE 20MEQ/PACKET PO SCH (10:00)
[2024-08-14] MEDS: ALBUMIN HUMAN 25GM/100ML (25%) IV NR (11:16)
[2024-08-14] MEDS: ALBUMIN HUMAN 12.5GM/50ML (25%) IV NR (14:23)
[2024-08-14 18:56] LABS: BASOPHILS % 0.6 % (0.0-2.0); EOSINOPHILS % 0.2 % (0.0-5.0); HEMATOCRIT. 21.7 % (36.0-48.0); HEMOGLOBIN. 7.2 g/dL (12.0-16.0); LYMPHOCYTES % 9.8 % (20.0-50.0); MEAN CORPUSCULAR HEMOGLOBIN 25.3 pg (28.0-32.0); MEAN CORPUSCULAR HGB CONC 33.2 g/dL (31.0-37.0); MEAN PLATELET VOLUME 7.9 fl (7.4-10.4); MONOCYTES % 3.8 % (2.0-8.0); NEUTROPHILS % 85.6 % (40.0-76.0); PLATELET 495 x1000/uL (130-400); RED BLOOD CELL COUNT 2.86 mill/uL (4.2-5.4); RED CELL DISTRIBUTION WIDTH 23.8 % (11.6-14.6); WHITE BLOOD COUNT 8.5 x1000/uL (4.5-11.0)
[2024-08-14 18:57] LABS: DIFFERENTIAL COMMENT 1
[2024-08-14] MEDS: LEVETIRACETAM 1000MG PREMIX 100 ML IV NR (21:56)
[2024-08-15] VITALS (102 sets, daily range): BP systolic 83–127; BP diastolic 21–91; PULSE 52–123; RESP 12–25; TEMP 33.78048–35.22504; O2SAT 97–100
[2024-08-15] MEDS: MAGNESIUM 4 G PREMIX 100 ML IV NR (01:04)
[2024-08-15 07:14] LABS: CARBON DIOXIDE 23 mEq/L (21-32); CHLORIDE 101 mEq/L (98-107); POTASSIUM 4.2 mEq/L (3.5-5.1); SODIUM 138 mEq/L (136-145)
[2024-08-15 07:15] LABS: CALCIUM 8.5 mg/dL (8.7-10.4)
[2024-08-15 07:20] LABS: CREATININE 3.2 mg/dL (0.6-1.0); GLUCOSE 80 mg/dL (70-105); UREA NITROGEN BLOOD 61 mg/dL (9-23)
[2024-08-15 07:38] LABS: BASOPHILS % 0.8 % (0.0-2.0); EOSINOPHILS % 0.4 % (0.0-5.0); HEMATOCRIT. 23.6 % (36.0-48.0); HEMOGLOBIN. 7.3 g/dL (12.0-16.0); MEAN CORPUSCULAR HEMOGLOBIN 24.7 pg (28.0-32.0); MEAN CORPUSCULAR VOLUME 79.8 fL (81.0-99.0); MONOCYTES % 3.7 % (2.0-8.0); NEUTROPHILS % 86.1 % (40.0-76.0); RED BLOOD CELL COUNT 2.96 mill/uL (4.2-5.4)
[2024-08-15 08:14] LABS: DIFFERENTIAL COMMENT 1
[2024-08-15 10:04] LABS: PLATELET 491 x1000/uL (130-400)
[2024-08-15 13:42] LABS: AMMONIA < 17 uMol/L (<32)
[2024-08-16] VITALS (104 sets, daily range): BP systolic 69–139; BP diastolic 22–99; PULSE 54–123; RESP 12–37; TEMP 33.78048–36.3918; O2SAT 95–100
[2024-08-16] MEDS ORDERED: METOPROLOL TARTRATE 5MG/5ML VIAL IV NR (01:15)
[2024-08-16 06:27] LABS: CALCIUM 8.5 mg/dL (8.7-10.4); POTASSIUM 3.3 mEq/L (3.5-5.1)
[2024-08-16 06:32] LABS: CREATININE 3.4 mg/dL (0.6-1.0)
[2024-08-16] MEDS: POTASSIUM CHLORIDE 20MEQ/PACKET NG NR (08:25)
[2024-08-16 08:37] LABS: BASOPHILS % 0.5 % (0.0-2.0); EOSINOPHILS % 0.3 % (0.0-5.0); LYMPHOCYTES % 9.5 % (20.0-50.0); MEAN CORPUSCULAR HGB CONC 33.9 g/dL (31.0-37.0); MEAN CORPUSCULAR VOLUME 76.9 fL (81.0-99.0); MEAN PLATELET VOLUME 8.3 fl (7.4-10.4); MONOCYTES % 3.4 % (2.0-8.0); NEUTROPHILS % 86.3 % (40.0-76.0); PLATELET 416 x1000/uL (130-400); RED BLOOD CELL COUNT 2.62 mill/uL (4.2-5.4); RED CELL DISTRIBUTION WIDTH 23.6 % (11.6-14.6); WHITE BLOOD COUNT 7.9 x1000/uL (4.5-11.0)
[2024-08-16 09:36] LABS: DIFFERENTIAL COMMENT 1
[2024-08-16 09:39] LABS: HEMATOCRIT. 20.2 % (36.0-48.0); HEMOGLOBIN. 6.8 g/dL (12.0-16.0)
[2024-08-17] VITALS (97 sets, daily range): BP systolic 84–138; BP diastolic 52–104; PULSE 61–98; RESP 8–23; TEMP 36.16956–36.6696; O2SAT 98–100
[2024-08-17 05:41] LABS: BASOPHILS % 0.6 % (0.0-2.0); EOSINOPHILS % 0.2 % (0.0-5.0); LYMPHOCYTES % 7.5 % (20.0-50.0); MEAN CORPUSCULAR HEMOGLOBIN 25.1 pg (28.0-32.0); MEAN CORPUSCULAR HGB CONC 32.5 g/dL (31.0-37.0); MEAN CORPUSCULAR VOLUME 77.3 fL (81.0-99.0); MEAN PLATELET VOLUME 8.3 fl (7.4-10.4); MONOCYTES % 3.5 % (2.0-8.0); NEUTROPHILS % 88.2 % (40.0-76.0); PLATELET 408 x1000/uL (130-400); RED BLOOD CELL COUNT 2.64 mill/uL (4.2-5.4); RED CELL DISTRIBUTION WIDTH 23.4 % (11.6-14.6); WHITE BLOOD COUNT 9.2 x1000/uL (4.5-11.0)
[2024-08-17 05:55] LABS: POTASSIUM 3.2 mEq/L (3.5-5.1)
[2024-08-17 05:56] LABS: CALCIUM 8.5 mg/dL (8.7-10.4)
[2024-08-17 06:01] LABS: CREATININE 2.7 mg/dL (0.6-1.0)
[2024-08-17 06:15] LABS: DIFFERENTIAL COMMENT 1
[2024-08-17 06:20] LABS: HEMATOCRIT. 20.4 % (36.0-48.0); HEMOGLOBIN. 6.6 g/dL (12.0-16.0)
[2024-08-17 06:24] LABS: ADD RBC MORPHOLOGY YES
[2024-08-17] MEDS: POTASSIUM CHLORIDE 20MEQ/PACKET NG NR (08:26)
[2024-08-17 14:44] LABS: HYPOCHROMASIA 1+; MICROCYTOSIS 2+; PLATELET ESTIMATE NORMAL; TARGET CELLS 1+
[2024-08-18] VITALS (91 sets, daily range): BP systolic 89–122; BP diastolic 65–96; PULSE 65–88; RESP 0–25; TEMP 36.22512–36.55848; O2SAT 99–100
[2024-08-18 05:04] LABS: BASOPHILS % 0.8 % (0.0-2.0); EOSINOPHILS % 0.5 % (0.0-5.0); HEMOGLOBIN. 8.4 g/dL (12.0-16.0); LYMPHOCYTES % 9.1 % (20.0-50.0); MEAN CORPUSCULAR HEMOGLOBIN 25.8 pg (28.0-32.0); MEAN CORPUSCULAR HGB CONC 32.4 g/dL (31.0-37.0); MEAN CORPUSCULAR VOLUME 79.7 fL (81.0-99.0); MEAN PLATELET VOLUME 8.1 fl (7.4-10.4); MONOCYTES % 3.1 % (2.0-8.0); NEUTROPHILS % 86.5 % (40.0-76.0); PLATELET 417 x1000/uL (130-400); RED BLOOD CELL COUNT 3.26 mill/uL (4.2-5.4); RED CELL DISTRIBUTION WIDTH 22.6 % (11.6-14.6); WHITE BLOOD COUNT 8.6 x1000/uL (4.5-11.0)
[2024-08-18 05:18] LABS: POTASSIUM 3.8 mEq/L (3.5-5.1)
[2024-08-18 05:19] LABS: CALCIUM 8.8 mg/dL (8.7-10.4)
[2024-08-18 05:24] LABS: CREATININE 3.2 mg/dL (0.6-1.0)
[2024-08-18 06:08] LABS: DIFFERENTIAL COMMENT 1
[2024-08-18] MEDS: MIDODRINE HCL 5MG TABLET PO SCH (17:45)
[2024-08-19] VITALS (102 sets, daily range): BP systolic 97–132; BP diastolic 43–90; PULSE 65–98; RESP 0–24; TEMP 35.61396–36.61404; O2SAT 96–100
[2024-08-19 05:01] LABS: CHLORIDE 103 mEq/L (98-107); POTASSIUM 3.9 mEq/L (3.5-5.1); SODIUM 138 mEq/L (136-145)
[2024-08-19 05:03] LABS: CALCIUM 8.4 mg/dL (8.7-10.4); CARBON DIOXIDE 22 mEq/L (21-32)
[2024-08-19 05:08] LABS: CREATININE 3.4 mg/dL (0.6-1.0); GLUCOSE 82 mg/dL (70-105); UREA NITROGEN BLOOD 66 mg/dL (9-23)
[2024-08-19 05:10] LABS: ALANINE AMINOTRANSFERASE 47 IU/L (10-49); ASPARTATE AMINOTRANSFERASE 103 IU/L (<34); BILIRUBIN TOTAL 0.2 mg/dL (0.1-1.0); PROTEIN TOTAL 6.4 g/dL (6.0-8.3)
[2024-08-19 05:17] LABS: BILIRUBIN DIRECT < 0.1 mg/dL (<=3.0)
[2024-08-19 05:20] LABS: EOSINOPHILS % 0.6 % (0.0-5.0); HEMATOCRIT. 24.7 % (36.0-48.0); HEMOGLOBIN. 8.3 g/dL (12.0-16.0); LYMPHOCYTES % 8.6 % (20.0-50.0); MEAN CORPUSCULAR HEMOGLOBIN 26.8 pg (28.0-32.0); MEAN CORPUSCULAR HGB CONC 33.4 g/dL (31.0-37.0); MEAN CORPUSCULAR VOLUME 80.3 fL (81.0-99.0); MEAN PLATELET VOLUME 7.8 fl (7.4-10.4); MONOCYTES % 4.1 % (2.0-8.0); NEUTROPHILS % 85.7 % (40.0-76.0); PLATELET 332 x1000/uL (130-400); RED BLOOD CELL COUNT 3.08 mill/uL (4.2-5.4); RED CELL DISTRIBUTION WIDTH 22.5 % (11.6-14.6); WHITE BLOOD COUNT 7.8 x1000/uL (4.5-11.0)
[2024-08-19 07:32] LABS: DIFFERENTIAL COMMENT 1
[2024-08-19] MEDS: FOLIC ACID 1MG TABLET PO SCH (09:20)
[2024-08-20] VITALS (102 sets, daily range): BP systolic 83–128; BP diastolic 43–82; PULSE 61–100; RESP 0–23; TEMP 35.44728–36.9474; O2SAT 10–100
[2024-08-20] MEDS ORDERED: MEROPENEM 1,000 MG in SODIUM CHLORIDE 0.9% 100 ML IV SCH (15:30)
[2024-08-20] MEDS ORDERED: MEROPENEM 1GM/50ML DUPLEX 50 ML IV SCH (15:30)
[2024-08-20] MEDS ORDERED: MEROPENEM 500MG/50ML IV SCH (17:00)
[2024-08-20 17:18] LABS: BASOPHILS % 0.6 % (0.0-2.0); EOSINOPHILS % 0.7 % (0.0-5.0); HEMATOCRIT. 22.6 % (36.0-48.0); HEMOGLOBIN. 7.4 g/dL (12.0-16.0); MEAN CORPUSCULAR HEMOGLOBIN 26.6 pg (28.0-32.0); MEAN CORPUSCULAR HGB CONC 32.6 g/dL (31.0-37.0); MEAN CORPUSCULAR VOLUME 81.5 fL (81.0-99.0); MEAN PLATELET VOLUME 8.2 fl (7.4-10.4); MONOCYTES % 4.3 % (2.0-8.0); NEUTROPHILS % 84.4 % (40.0-76.0); PLATELET 329 x1000/uL (130-400); RED BLOOD CELL COUNT 2.77 mill/uL (4.2-5.4); RED CELL DISTRIBUTION WIDTH 22.2 % (11.6-14.6); WHITE BLOOD COUNT 6.1 x1000/uL (4.5-11.0)
[2024-08-20 17:19] LABS: DIFFERENTIAL COMMENT 1
[2024-08-20] MEDS: MEROPENEM 500MG/50ML IV SCH (17:19)
[2024-08-20] MEDS: MIDODRINE HCL 5MG TABLET PO SCH (17:20)
[2024-08-20 17:23] LABS: CALCIUM 8.4 mg/dL (8.7-10.4); CARBON DIOXIDE 23 mEq/L (21-32); CHLORIDE 103 mEq/L (98-107); POTASSIUM 3.5 mEq/L (3.5-5.1); SODIUM 138 mEq/L (136-145)
[2024-08-20 17:28] LABS: GLUCOSE 83 mg/dL (70-105)
[2024-08-20 17:30] LABS: PHOSPHORUS 4.3 mg/dL (2.5-4.9); UREA NITROGEN BLOOD 60 mg/dL (9-23)
[2024-08-21] VITALS (98 sets, daily range): BP systolic 80–118; BP diastolic 52–84; PULSE 54–96; RESP 0–24; TEMP 35.94732–37.2252; O2SAT 86–100
[2024-08-21 05:40] LABS: BASOPHILS % 0.9 % (0.0-2.0); HEMATOCRIT. 22.4 % (36.0-48.0); HEMOGLOBIN. 7.5 g/dL (12.0-16.0); LYMPHOCYTES % 9.8 % (20.0-50.0); MEAN CORPUSCULAR HEMOGLOBIN 27.4 pg (28.0-32.0); MEAN CORPUSCULAR HGB CONC 33.7 g/dL (31.0-37.0); MEAN CORPUSCULAR VOLUME 81.5 fL (81.0-99.0); MEAN PLATELET VOLUME 8.2 fl (7.4-10.4); MONOCYTES % 5.3 % (2.0-8.0); PLATELET 283 x1000/uL (130-400); RED BLOOD CELL COUNT 2.74 mill/uL (4.2-5.4); WHITE BLOOD COUNT 5.3 x1000/uL (4.5-11.0)
[2024-08-21 05:49] LABS: CARBON DIOXIDE 22 mEq/L (21-32); CHLORIDE 103 mEq/L (98-107); POTASSIUM 3.4 mEq/L (3.5-5.1); SODIUM 138 mEq/L (136-145)
[2024-08-21 05:50] LABS: CALCIUM 8.4 mg/dL (8.7-10.4)
[2024-08-21 05:54] LABS: CREATININE 3.1 mg/dL (0.6-1.0); GLUCOSE 97 mg/dL (70-105)
[2024-08-21 05:56] LABS: UREA NITROGEN BLOOD 67 mg/dL (9-23)
[2024-08-21 05:57] LABS: PHOSPHORUS 4.5 mg/dL (2.5-4.9)
[2024-08-21 06:01] LABS: DIFFERENTIAL COMMENT 1
[2024-08-21] MEDS: DOBUTAMINE 250MG PREMIX 250 ML IV PRN (20:09)
[2024-08-22] VITALS (102 sets, daily range): BP systolic 59–143; BP diastolic 31–89; PULSE 58–99; RESP 0–24; TEMP 36.16956–37.00296; O2SAT 98–100
[2024-08-22 10:23] LABS: BASOPHILS % 1.1 % (0.0-2.0); EOSINOPHILS % 0.9 % (0.0-5.0); HEMATOCRIT. 24.8 % (36.0-48.0); HEMOGLOBIN. 8.2 g/dL (12.0-16.0); LYMPHOCYTES % 9.1 % (20.0-50.0); MEAN CORPUSCULAR HEMOGLOBIN 26.9 pg (28.0-32.0); MEAN CORPUSCULAR HGB CONC 33.1 g/dL (31.0-37.0); MEAN CORPUSCULAR VOLUME 81.4 fL (81.0-99.0); MEAN PLATELET VOLUME 8.2 fl (7.4-10.4); MONOCYTES % 5.5 % (2.0-8.0); NEUTROPHILS % 83.4 % (40.0-76.0); PLATELET 310 x1000/uL (130-400); RED BLOOD CELL COUNT 3.04 mill/uL (4.2-5.4); RED CELL DISTRIBUTION WIDTH 23.5 % (11.6-14.6); WHITE BLOOD COUNT 6.3 x1000/uL (4.5-11.0)
[2024-08-22 10:58] LABS: DIFFERENTIAL COMMENT 1
[2024-08-22 11:05] LABS: POTASSIUM 3.7 mEq/L (3.5-5.1)
[2024-08-22 11:06] LABS: CALCIUM 8.6 mg/dL (8.7-10.4)
[2024-08-22 11:11] LABS: CREATININE 3.2 mg/dL (0.6-1.0)
[2024-08-22] MEDS: MIDODRINE HCL 5MG TABLET PO SCH (17:00)
[2024-08-23] VITALS (99 sets, daily range): BP systolic 92–139; BP diastolic 65–112; PULSE 64–101; RESP 10–26; TEMP 36.83628–37.11408; O2SAT 97–100
[2024-08-23 04:25] LABS: BASOPHILS % 0.8 % (0.0-2.0); EOSINOPHILS % 0.6 % (0.0-5.0); HEMATOCRIT. 27.7 % (36.0-48.0); HEMOGLOBIN. 8.8 g/dL (12.0-16.0); LYMPHOCYTES % 11.9 % (20.0-50.0); MEAN CORPUSCULAR HEMOGLOBIN 27.4 pg (28.0-32.0); MEAN CORPUSCULAR HGB CONC 31.7 g/dL (31.0-37.0); MEAN CORPUSCULAR VOLUME 86.4 fL (81.0-99.0); MEAN PLATELET VOLUME 8.2 fl (7.4-10.4); NEUTROPHILS % 79.7 % (40.0-76.0); PLATELET 296 x1000/uL (130-400); RED CELL DISTRIBUTION WIDTH 23.5 % (11.6-14.6); WHITE BLOOD COUNT 6.2 x1000/uL (4.5-11.0)
[2024-08-23 04:29] LABS: POTASSIUM 4.5 mEq/L (3.5-5.1)
[2024-08-23 04:30] LABS: DIFFERENTIAL COMMENT 1
[2024-08-23 04:31] LABS: CALCIUM 8.7 mg/dL (8.7-10.4)
[2024-08-23 04:35] LABS: CREATININE 2.7 mg/dL (0.6-1.0)
[2024-08-23] MEDS: MEROPENEM 500MG/50ML 50 ML IV SCH (17:31)
[2024-08-24] VITALS (93 sets, daily range): BP systolic 81–133; BP diastolic 38–91; PULSE 44–87; RESP 12–26; TEMP 36.50292–36.89184; O2SAT 96–100
[2024-08-24 06:41] LABS: EOSINOPHILS % 1.1 % (0.0-5.0); HEMATOCRIT. 21.5 % (36.0-48.0); LYMPHOCYTES % 10.2 % (20.0-50.0); MEAN CORPUSCULAR HEMOGLOBIN 26.5 pg (28.0-32.0); MEAN CORPUSCULAR HGB CONC 32.1 g/dL (31.0-37.0); MEAN CORPUSCULAR VOLUME 82.5 fL (81.0-99.0); MEAN PLATELET VOLUME 8.3 fl (7.4-10.4); MONOCYTES % 5.7 % (2.0-8.0); PLATELET 264 x1000/uL (130-400); RED CELL DISTRIBUTION WIDTH 23.3 % (11.6-14.6); WHITE BLOOD COUNT 5.3 x1000/uL (4.5-11.0)
[2024-08-24 07:03] LABS: DIFFERENTIAL COMMENT 1; HEMOGLOBIN. 6.9 g/dL (12.0-16.0)
[2024-08-24 12:50] LABS: POTASSIUM 3.7 mEq/L (3.5-5.1)
[2024-08-24 12:52] LABS: CALCIUM 8.3 mg/dL (8.7-10.4)
[2024-08-24 12:56] LABS: CREATININE 2.9 mg/dL (0.6-1.0)
[2024-08-25] VITALS (94 sets, daily range): BP systolic 71–142; BP diastolic 14–99; PULSE 45–123; RESP 13–24; TEMP 34.725–36.72516; O2SAT 0–100
[2024-08-25 01:10] LABS: BASOPHILS % 0.6 % (0.0-2.0); EOSINOPHILS % 0.9 % (0.0-5.0); HEMATOCRIT. 35.6 % (36.0-48.0); HEMOGLOBIN. 11.6 g/dL (12.0-16.0); LYMPHOCYTES % 16.5 % (20.0-50.0); MEAN CORPUSCULAR HGB CONC 32.5 g/dL (31.0-37.0); MEAN CORPUSCULAR VOLUME 86.2 fL (81.0-99.0); MEAN PLATELET VOLUME 8.5 fl (7.4-10.4); MONOCYTES % 7.3 % (2.0-8.0); NEUTROPHILS % 74.7 % (40.0-76.0); PLATELET 347 x1000/uL (130-400); RED BLOOD CELL COUNT 4.13 mill/uL (4.2-5.4); RED CELL DISTRIBUTION WIDTH 22.2 % (11.6-14.6); WHITE BLOOD COUNT 10.9 x1000/uL (4.5-11.0)
[2024-08-25 01:26] LABS: DIFFERENTIAL COMMENT 1
[2024-08-25 05:55] LABS: BASOPHILS % 0.5 % (0.0-2.0); EOSINOPHILS % 0.5 % (0.0-5.0); HEMATOCRIT. 28.3 % (36.0-48.0); HEMOGLOBIN. 9.3 g/dL (12.0-16.0); LYMPHOCYTES % 7.9 % (20.0-50.0); MEAN CORPUSCULAR HGB CONC 32.9 g/dL (31.0-37.0); MEAN PLATELET VOLUME 8.3 fl (7.4-10.4); MONOCYTES % 4.4 % (2.0-8.0); NEUTROPHILS % 86.7 % (40.0-76.0); PLATELET 260 x1000/uL (130-400); RED BLOOD CELL COUNT 3.32 mill/uL (4.2-5.4); RED CELL DISTRIBUTION WIDTH 21.5 % (11.6-14.6); WHITE BLOOD COUNT 6.6 x1000/uL (4.5-11.0)
[2024-08-25 05:56] LABS: POTASSIUM 3.5 mEq/L (3.5-5.1)
[2024-08-25 05:58] LABS: CALCIUM 8.5 mg/dL (8.7-10.4)
[2024-08-25 06:03] LABS: CREATININE 3.3 mg/dL (0.6-1.0)
[2024-08-25] MEDS: FOLIC ACID/VITAMIN B COMP W-C TABLET PO SCH (09:16)
[2024-08-26] VITALS (102 sets, daily range): BP systolic 86–115; BP diastolic 58–82; PULSE 69–109; RESP 13–34; TEMP 34.725–36.72516; O2SAT 92–100
[2024-08-26] MEDS: NOREPINEPHRINE 32 MG in DEXT 5% WATER 218 ML IV PRN (01:57)
[2024-08-26 05:10] LABS: BASOPHILS % 0.4 % (0.0-2.0); EOSINOPHILS % 0.8 % (0.0-5.0); HEMATOCRIT. 28.8 % (36.0-48.0); HEMOGLOBIN. 9.3 g/dL (12.0-16.0); LYMPHOCYTES % 8.5 % (20.0-50.0); MEAN CORPUSCULAR HEMOGLOBIN 27.6 pg (28.0-32.0); MEAN CORPUSCULAR HGB CONC 32.2 g/dL (31.0-37.0); MEAN CORPUSCULAR VOLUME 85.6 fL (81.0-99.0); MEAN PLATELET VOLUME 8.3 fl (7.4-10.4); MONOCYTES % 5.4 % (2.0-8.0); NEUTROPHILS % 84.9 % (40.0-76.0); PLATELET 246 x1000/uL (130-400); RED BLOOD CELL COUNT 3.36 mill/uL (4.2-5.4); RED CELL DISTRIBUTION WIDTH 22.3 % (11.6-14.6); WHITE BLOOD COUNT 7.6 x1000/uL (4.5-11.0)
[2024-08-26 05:29] LABS: CARBON DIOXIDE 20 mEq/L (21-32); CHLORIDE 108 mEq/L (98-107); POTASSIUM 3.7 mEq/L (3.5-5.1); SODIUM 143 mEq/L (136-145)
[2024-08-26 05:30] LABS: CALCIUM 8.8 mg/dL (8.7-10.4)
[2024-08-26 05:34] LABS: CREATININE 2.9 mg/dL (0.6-1.0)
[2024-08-26 05:35] LABS: GLUCOSE 88 mg/dL (70-105); UREA NITROGEN BLOOD 56 mg/dL (9-23)
[2024-08-26 05:37] LABS: PHOSPHORUS 3.6 mg/dL (2.5-4.9)
[2024-08-26 06:48] LABS: DIFFERENTIAL COMMENT 1
[2024-08-26] MEDS ORDERED: LEVETIRACETAM 1,000MG in NACL 100ML PREMIX IV SCH (13:45)
[2024-08-26] MEDS ORDERED: LEVETIRACETAM 1,000MG in NACL 100ML PREMIX IV PRN (13:45)
[2024-08-26] MEDS: LEVETIRACETAM 1000MG PREMIX 100 ML IV SCH (14:05)
[2024-08-27] VITALS (97 sets, daily range): BP systolic 85–123; BP diastolic 60–88; PULSE 72–110; RESP 16–27; TEMP 36.3918–36.89184; O2SAT 99–100
[2024-08-27] MEDS: ACETYLCYSTEINE 200MG/ML 20% VIAL 4ML INH SCH (00:39)
[2024-08-27] MEDS: IPRATROPIUM/ALBUTEROL 0.5-3(2.5)MG/3ML NEB HHN PRN (00:39)
[2024-08-27 06:38] LABS: POTASSIUM 3.6 mEq/L (3.5-5.1)
[2024-08-27 06:40] LABS: CALCIUM 8.8 mg/dL (8.7-10.4)
[2024-08-27 06:43] LABS: CREATININE 3.1 mg/dL (0.6-1.0)
[2024-08-27 06:48] LABS: BASOPHILS % 0.6 % (0.0-2.0); EOSINOPHILS % 1.1 % (0.0-5.0); HEMATOCRIT. 26.8 % (36.0-48.0); HEMOGLOBIN. 8.7 g/dL (12.0-16.0); LYMPHOCYTES % 9.9 % (20.0-50.0); MEAN CORPUSCULAR HEMOGLOBIN 27.5 pg (28.0-32.0); MEAN CORPUSCULAR HGB CONC 32.5 g/dL (31.0-37.0); MEAN CORPUSCULAR VOLUME 84.7 fL (81.0-99.0); MEAN PLATELET VOLUME 8.5 fl (7.4-10.4); MONOCYTES % 5.6 % (2.0-8.0); NEUTROPHILS % 82.8 % (40.0-76.0); PLATELET 271 x1000/uL (130-400); RED BLOOD CELL COUNT 3.17 mill/uL (4.2-5.4); RED CELL DISTRIBUTION WIDTH 22.2 % (11.6-14.6); WHITE BLOOD COUNT 6.9 x1000/uL (4.5-11.0)
[2024-08-27 07:06] LABS: DIFFERENTIAL COMMENT 1
[2024-08-27 09:48] LABS: BG BASE EXCESS -3.6 mmol/L (-2.0-3.0); BG DEOXYHEMOGLOBIN 0.8 % (0.0-5.0); BG FRACTION INSPIRED OXYGEN 35; BG HCO3 ACT 19.9 mmol/L (21.0-28.0); BG METHEMOGLOBIN 0.2 % (0.5-1.5); BG OXYGEN SATURATION 99.2 % (94.0-98.0); BG PCO2 29.8 mmHg (32.0-45.0); BG PH 7.443 (7.350-7.450); BG PO2 161.1 mmHg (83.0-108.0); BG SAMPLE SITE LEFT BRACHIAL; BG TOTAL HEMOGLOBIN 8.3 g/dL (12.0-16.0); BG VENT MODE VENT - AC
[2024-08-27] MEDS: LEVETIRACETAM 1000MG PREMIX 100 ML IV PRN (10:06)
[2024-08-27] MEDS ORDERED: MEROPENEM 1G/100ML 100 ML IV SCH (22:00)
[2024-08-28] VITALS (28 sets, daily range): BP systolic 92–121; BP diastolic 64–88; PULSE 73–111; RESP 16–51; TEMP 36.44736–36.61404; O2SAT 99–100
[2024-08-28] MEDS: MEROPENEM 1GM/50ML DUPLEX 50 ML IV SCH (22:27)
[2024-08-29] VITALS (10 sets, daily range): BP systolic 92–103; BP diastolic 63–75; PULSE 81–113; RESP 9–22; TEMP 36.114–37.00296; O2SAT 99–100
[2024-08-29 08:53] LABS: HEMATOCRIT. 25.7 % (36.0-48.0); HEMOGLOBIN. 8.4 g/dL (12.0-16.0); MEAN CORPUSCULAR HEMOGLOBIN 27.8 pg (28.0-32.0); MEAN CORPUSCULAR HGB CONC 32.6 g/dL (31.0-37.0); MEAN CORPUSCULAR VOLUME 85.1 fL (81.0-99.0); MEAN PLATELET VOLUME 8.5 fl (7.4-10.4); PLATELET 251 x1000/uL (130-400); RED BLOOD CELL COUNT 3.02 mill/uL (4.2-5.4); WHITE BLOOD COUNT 8.6 x1000/uL (4.5-11.0)
[2024-08-29 09:59] LABS: DIFFERENTIAL COMMENT 1
[2024-08-29 10:22] LABS: POTASSIUM 2.2 mEq/L (3.5-5.1)
[2024-08-29 10:23] LABS: CALCIUM 5.7 mg/dL (8.7-10.4); CREATININE 1.9 mg/dL (0.6-1.0)
[2024-08-29] MEDS ORDERED: POTASSIUM CHLORIDE 40 MEQ in DEXT 5% WATER 230 ML IV ONE (11:00)
[2024-08-29] MEDS: LORAZEPAM 2MG/ML INJ IV PRN (11:26)
[2024-08-29] MEDS: MORPHINE SULFATE 250 MG in DEXT 5% WATER 225 ML IV PRN (11:27)
[2024-08-30 14:34] LABS: ANISOCYTOSIS 2+; PLATELET ESTIMATE NORMAL
== END 2024-08-29 21:17 | DRG 5 ==
LOC: ER 17:04 → 8WST 23:42 → 8EST 07-26 16:37 → MICUSO 07-27 19:12 → 5EST 08-28 04:10 → 6WST 08-29 14:36
PROVIDERS: ADMIT Internal Medicine; ATTEND Internal Medicine
PROC: 02HV33Z Insertion of Infusion Device into Superior Vena Cava, Percutaneous Approach (ICD-10-PCS; 2024-07-18)
PROC: B548ZZA Ultrasonography of Superior Vena Cava, Guidance (ICD-10-PCS; 2024-07-18)
PROC: 5A1D70Z Performance of Urinary Filtration, Intermittent, Less than 6 Hours Per Day (ICD-10-PCS; 2024-07-18)
PROC: 5A1D70Z Performance of Urinary Filtration, Intermittent, Less than 6 Hours Per Day (ICD-10-PCS; 2024-07-19)
PROC: 5A1D70Z Performance of Urinary Filtration, Intermittent, Less than 6 Hours Per Day (ICD-10-PCS; 2024-07-21)
PROC: 5A1D70Z Performance of Urinary Filtration, Intermittent, Less than 6 Hours Per Day (ICD-10-PCS; 2024-07-24)
PROC: 5A1955Z Respiratory Ventilation, Greater than 96 Consecutive Hours (ICD-10-PCS; 2024-07-27)
PROC: 0BH17EZ Insertion of Endotracheal Airway into Trachea, Via Natural or Artificial Opening (ICD-10-PCS; 2024-07-27)
PROC: 5A1D70Z Performance of Urinary Filtration, Intermittent, Less than 6 Hours Per Day (ICD-10-PCS; 2024-07-27)
PROC: 5A1D70Z Performance of Urinary Filtration, Intermittent, Less than 6 Hours Per Day (ICD-10-PCS; 2024-07-28)
PROC: 5A1D70Z Performance of Urinary Filtration, Intermittent, Less than 6 Hours Per Day (ICD-10-PCS; 2024-07-29)
PROC: 4A00X4Z Measurement of Central Nervous Electrical Activity, External Approach (ICD-10-PCS; 2024-07-30)
PROC: 30233N1 Transfusion of Nonautologous Red Blood Cells into Peripheral Vein, Percutaneous Approach (ICD-10-PCS; 2024-07-31)
PROC: 5A1D70Z Performance of Urinary Filtration, Intermittent, Less than 6 Hours Per Day (ICD-10-PCS; 2024-07-31)
PROC: 02HV33Z Insertion of Infusion Device into Superior Vena Cava, Percutaneous Approach (ICD-10-PCS; 2024-08-02)
PROC: B548ZZA Ultrasonography of Superior Vena Cava, Guidance (ICD-10-PCS; 2024-08-02)
PROC: 02H633Z Insertion of Infusion Device into Right Atrium, Percutaneous Approach (ICD-10-PCS; 2024-08-04)
PROC: B548ZZA Ultrasonography of Superior Vena Cava, Guidance (ICD-10-PCS; 2024-08-04)
PROC: 5A1D70Z Performance of Urinary Filtration, Intermittent, Less than 6 Hours Per Day (ICD-10-PCS; 2024-08-04)
PROC: 5A1D70Z Performance of Urinary Filtration, Intermittent, Less than 6 Hours Per Day (ICD-10-PCS; 2024-08-07)
PROC: 5A1D70Z Performance of Urinary Filtration, Intermittent, Less than 6 Hours Per Day (ICD-10-PCS; 2024-08-09)
PROC: 5A1D70Z Performance of Urinary Filtration, Intermittent, Less than 6 Hours Per Day (ICD-10-PCS; 2024-08-12)
PROC: 0B110F4 Bypass Trachea to Cutaneous with Tracheostomy Device, Open Approach (ICD-10-PCS; principal; 2024-08-13)
PROC: 0BJ08ZZ Inspection of Tracheobronchial Tree, Via Natural or Artificial Opening Endoscopic (ICD-10-PCS; 2024-08-13)
PROC: 5A1D70Z Performance of Urinary Filtration, Intermittent, Less than 6 Hours Per Day (ICD-10-PCS; 2024-08-14)
PROC: 5A1D70Z Performance of Urinary Filtration, Intermittent, Less than 6 Hours Per Day (ICD-10-PCS; 2024-08-16)
PROC: 5A1D70Z Performance of Urinary Filtration, Intermittent, Less than 6 Hours Per Day (ICD-10-PCS; 2024-08-20)
PROC: 5A1D70Z Performance of Urinary Filtration, Intermittent, Less than 6 Hours Per Day (ICD-10-PCS; 2024-08-22)
PROC: 5A1D70Z Performance of Urinary Filtration, Intermittent, Less than 6 Hours Per Day (ICD-10-PCS; 2024-08-25)
PROC: 5A1D70Z Performance of Urinary Filtration, Intermittent, Less than 6 Hours Per Day (ICD-10-PCS; 2024-08-27)
DX: N17.9 Acute kidney failure, unspecified (principal); A41.02 Sepsis due to Methicillin resistant Staphylococcus aureus; R65.21 Severe sepsis with septic shock; G92.8 Other toxic encephalopathy; B20 Human immunodeficiency virus [HIV] disease; L89.156 Pressure-induced deep tissue damage of sacral region; E87.20 Acidosis, unspecified; T80.211A Bloodstream infection due to central venous catheter, initial encounter; I21.A1 Myocardial infarction type 2; R18.8 Other ascites; E87.5 Hyperkalemia; J96.01 Acute respiratory failure with hypoxia; N18.6 End stage renal disease; D50.9 Iron deficiency anemia, unspecified; Z99.2 Dependence on renal dialysis; B96.20 Unspecified Escherichia coli [E. coli] as the cause of diseases classified elsewhere; B95.2 Enterococcus as the cause of diseases classified elsewhere; M54.50 Low back pain, unspecified; N76.0 Acute vaginitis; I46.9 Cardiac arrest, cause unspecified; D75.839 Thrombocytosis, unspecified; G25.3 Myoclonus; F19.10 Other psychoactive substance abuse, uncomplicated; E88.09 Other disorders of plasma-protein metabolism, not elsewhere classified; I87.8 Other specified disorders of veins; F29 Unspecified psychosis not due to a substance or known physiological condition; Z66 Do not resuscitate; R97.1 Elevated cancer antigen 125 [CA 125]; E53.8 Deficiency of other specified B group vitamins; B96.89 Other specified bacterial agents as the cause of diseases classified elsewhere; G89.29 Other chronic pain; L98.8 Other specified disorders of the skin and subcutaneous tissue; I82.511 Chronic embolism and thrombosis of right femoral vein; R13.10 Dysphagia, unspecified; F41.9 Anxiety disorder, unspecified; Y90.9 Presence of alcohol in blood, level not specified; N13.9 Obstructive and reflux uropathy, unspecified; F10.229 Alcohol dependence with intoxication, unspecified; N13.30 Unspecified hydronephrosis; N91.2 Amenorrhea, unspecified; R82.71 Bacteriuria; F15.10 Other stimulant abuse, uncomplicated; F11.10 Opioid abuse, uncomplicated; Y84.8 Other medical procedures as the cause of abnormal reaction of the patient, or of later complication, without mention of misadventure at the time of the procedure; Y83.8 Other surgical procedures as the cause of abnormal reaction of the patient, or of later complication, without mention of misadventure at the time of the procedure; Y92.238 Other place in hospital as the place of occurrence of the external cause; Z51.5 Encounter for palliative care; Z78.1 Physical restraint status
CPT/HCPCS: 36415; 36556; 36573; 36600; 70496; 70498; 70551; 71045; 71250; 71260; 74018; 74176; 74177; 76705; 76770; 76937; 78580; 80048; 80053; 80076; 80202; 80305; 80320; 81003; 82040; 82140; 82270; 82375; 82378; 82550; 82607; 82728; 82746; 82805; 82962; 83540; 83550; 83605; 83735; 83880; 84100; 84132; 84134; 84145; 84443; 84478; 84484; 84703; 85014; 85018; 85025; 85044; 85379; 86304; 86359; 86360; 86705; 86706; 86709; 86850; 86900; 86920; 87070; 87077; 87186; 87340; 87426; 87536; 90935; 93005; 93306; 93312; 93970; 94002; 94003; 94070; 94640; 94664; 95816; 97166; 97530; 99291; A4606; A4663; A6261; C1725; C1752; C1769; C1893; J0610; J0696; J0878; J1250; J1642; J1644; J1650; J1815; J1953; J2003; J2060; J2185; J2250; J2270; J2405; J2470; J2543; J2704; J3370; J3475; J3490; J7050; J7060; J7070; J7608; P9016; P9047; Q9967; G0480